=== PATIENT | female | born 1955 | race Caucasian/White ===

== ENCOUNTER 2023-08-18 14:48 | Outpatient (OUT) | payer BC, SELFPAY ==
[2023-08-18 15:50] LABS: Basophils Absolute Auto 0.1 10^3/uL (0.0-0.1); Basophils Percent Auto 0.9 % (0.2-2.0); Eosinophils Absolute Auto 0.2 10^3/uL (0.0-0.7); Hematocrit 43.2 % (36.0-48.0); Hemoglobin 14.3 g/dL (12.0-16.0); Immature Granulocytes Abs Auto 0.05 10^3/uL (0.00-0.03); Immature Granulocytes Pct Auto 0.7 % (0.0-0.5); Lymphocytes Absolute Auto 1.9 10^3/uL (1.2-3.8); Lymphocytes Percent Auto 28.7 % (20.5-60.0); Mean Corpuscular HGB Conc 33.1 g/dL (29.9-35.2); Mean Corpuscular Hemoglobin 31.2 pg (26.7-34.0); Mean Corpuscular Volume 94.1 fL (81.0-99.0); Monocytes Absolute Auto 0.4 10^3/uL (0.3-0.8); Monocytes Percent Auto 5.5 % (1.7-12.0); Neutrophils Absolute Auto 4.1 10^3/uL (1.4-6.5); Neutrophils Percent Auto 61.2 % (43.0-75.0); Platelet Count 256 10^3/uL (150-450); Red Blood Count 4.59 10^6/uL (4.20-5.40); Red Cell Distribution Width 12.6 % (11.0-15.0); White Blood Count 6.7 10^3/uL (4.0-11.0)
[2023-08-18 15:58] LABS: Estimated Average Glucose 97 mg/dL
[2023-08-18 16:06] LABS: Alanine Aminotransferase 25 U/L (14-59); Albumin Globulin Ratio 0.9; Albumin Level 3.6 g/dL (3.4-5.0); Alkaline Phosphatase 97 U/L (46-116); Anion Gap 11.9; Aspartate Amino Transferase 19 U/L (15-37); BUN Creatinine Ratio 13.3; Bilirubin Total 0.4 mg/dL (0.2-1.0); Carbon Dioxide 29.1 mmol/L (21.0-32.0); Chloride 104 mmol/L (98-107); Chol HDL Ratio 3.4; Cholesterol 222 mg/dL (<=200); Estimated GFR (African America >60 (>=60); Estimated GFR (Non-African Ame >60 (>=60); Free T3 2.56 pg/mL (2.18-3.98); Globulin 3.9 g/dL; Glucose 97 mg/dL (74-106); HDL Cholesterol 66 mg/dL (40-60); Sodium 141 mmol/L (136-145); Thyroid Stimulating Hormone 5.024 uIU/mL (0.358-3.740); Total Protein 7.5 g/dL (6.4-8.2); Triglycerides 121 mg/dL (<=150); VLDL CHOLESTEROL 24.2 mg/dL
== END 2023-08-18 14:49 | disposition home or self-care (01) ==
LOC: LAB 14:52
PROVIDERS: PCP Family Medicine; Visit Provider Family Medicine
DX: E03.9 Hypothyroidism, unspecified (principal); K44.9 Diaphragmatic hernia without obstruction or gangrene; K29.70 Gastritis, unspecified, without bleeding; E78.5 Hyperlipidemia, unspecified; R73.09 Other abnormal glucose; Z12.12 Encounter for screening for malignant neoplasm of rectum; D64.9 Anemia, unspecified; E55.9 Vitamin D deficiency, unspecified
CPT/HCPCS: 36415; 80053; 80061; 82306; 83036; 83525; 83540; 84436; 84443; 84481; 85025

== ENCOUNTER 2025-02-10 08:15 | Outpatient (OUT) | payer BC, SELFPAY ==
--- OUTSIDE RECORDS SUMMARY | 2025-02-10 08:41 | XMS_ITS | CCD ---
Author Organization [facility] Care Team Providers Care Medical Records Secretary Name Role Phone Ana Quezada MD Primary Care Provider [phone] DR ANA QUEZADA Admitting Unavailable BREANNE, DR PEREZ Attending Unavailable DR ANA QUEZADA Primary Care Unavailable DR ANA QUEZADA Consulting Unavailable Ana Quezada MD Primary Care Provider [phone] HOY, ANA M Primary Care Unavailable ALONA, IFEANYI Attending Unavailable ALONA, IFEANYI Referring Unavailable HOY, ANA M Primary Care Unavailable SELF, SELF Referring Unavailable MILADYS WRIGHT Attending Unavailable HOY, ANA M Primary Care Unavailable ALONA, IFEANYI Attending Unavailable ALONA, IFEANYI Referring Unavailable HOY, ANA M Referring Unavailable ALONA, IFEANYI Attending Unavailable HOY, ANA M Primary Care Unavailable HOY, ANA M Primary Care Unavailable HOY, ANA M Referring Unavailable ALONA, IFEANYI Attending Unavailable TEMO MARTINEZ Attending Unavailable HOY, ANA M Primary Care Unavailable HOY, ANA M Primary Care Unavailable JANESSA MARTINEZ Attending Unavailable Allergies Allergy Classification Reported Allergen(s) Allergy Type Date of Onset Reaction(s) Facility (5 sources) Latex Propensity to adverse reactions to drug 10-22-2022 [facility] Medications Current Medications Medication Drug Class(es) Dates Sig (Normalized) Sig (Original) [id number] 200 actuat albuterol 0.09 mg/actuat metered dose inhaler (5 sources) beta2-Adrenergic Agonist Start: 11-04-2024 take 2 puff(s) by inhalation every four hours as needed Albuterol 108 (90 Base) MCG/ACT Aero Soln inhaler Inhale 2 puffs every 4 hours as needed. 1 g 11/04/2024 Active Start: 10-15-2021 albuterol inha ler 4 puff Start: 10-15-2021 End: 07-15-2024 take 2 puff(s) by inhalation every four hours as needed for cough albuterol 108 (90 Base) MCG/ACT Aero Soln inhaler Inhale 2 puffs every 4 hours as needed for Shortness of Breath, Cough or Wheezing. 1 g 10/15/2021 07/15/2024 Discontinued (Therapy completed) azithromycin 500 mg oral tablet (1 source) Macrolide Antimicrobial Start: 11-08-2024 End: 11-13-2024 take 1 tablet by mouth once daily azithromycin 500 MG tablet Take 1 tablet by mouth daily for 5 days. 5 tablet 11/08/2024 11/13/2024 Active Cetirizine (5 sources) Histamine-1 Receptor Antagonist Cetirizine HCl (ZYRTEC ALLERGY PO) Take by mouth After meals as needed. Active dextromethorphan hydrobromide 2 mg/ml / guaiFENesin 20 mg/ml oral suspension (4 sources) Uncompetitive P-okanil-T-aspartat e Receptor Antagonist, Sigma-1 Agonist Start: 11-08-2024 take 10 mL by mouth every six hours as needed guaiFENesin-dextr omethorphan 100-10 MG/5ML Syrup Take 10 mL by mouth every 6 hours as needed for Cough or Congestion. 240 mL 11/08/2024 Active Start: 11-08-2024 End: 11-08-2024 take 1 dose by mouth once 10 mL, Oral, ONCE, 1 dose, O n 11/08/24 at 0045 Start: 11-04-2024 End: 11-08-2024 take 5-10 mL by mouth every four hours as needed guaiFENesin-dextromethorphan 100-10 MG/5ML Syrup Take 5-10 mL by mouth every 4 hours as needed for Cough. 120 mL 11/04/2024 11/08/2024 Discontinued (Therapy completed) fluticasone propionate 0.05 mg/actuat metered dose nasal spray (1 source) Corticosteroid Start: 11-08-2024 fluticasone 50 MCG/ACT Suspension nasal spray 2 sprays per nostril b.i.d. for 7 days. 16 g 11/08/2024 Active Start: 11-08-2024 fluticasone 50 MCG/ACT Suspension nasal spray 2 sprays per nostril b.i.d. for 7 days. 16 g 11/08/2024 Active levothyroxine sodium 0.05 mg oral tablet (5 sources) l-Thyroxine Start: 07-16-2024 End: 10-14-2024 take 1 tablet by mouth once daily before breakfast Levothyroxine 50 MCG tablet Indications: Hypothyroidism, unspecified type Take 1 tablet by mouth every morning before breakfast. 30 tablet 5 10/14/2024 Active pantoprazole 40 mg delayed release oral tablet (5 sources) Proton Pump Inhibitor Start: 10-16-2023 Pantop[address] tablet DR Take 1 tablet by mouth as needed for Other. 10/16/2023 Active Completed/Discontinued Medications Medication Drug Class(es) Dates Sig (Normalized) Sig (Original) albuterol 0.833 mg/ml / ipratropium bromide 0.167 mg/ml inhalation solution (1 source) Anticholinergic, beta2-Adrenergic Agonist Start: 11-04-2024 End: 11-04-2024 9 mL, Nebulization, ONCE, 1 dose, On 11/04/24 at 1400 benzonatate 100 mg oral capsule (1 source) Non-narcotic Antitussive Start: 11-04-2024 End: 11-04-2024 take 1 capsule by mouth three times daily as needed for cough benzonatate 100 MG capsule Take 1 capsule by mouth 3 times daily as needed for Cough. 21 capsule 11/04/2024 11/04/2024 Discontinued (Therapy completed) cefdinir 300 mg oral capsule (3 sources) Cephalosporin Antibacterial End: 10-14-2024 take 2 capsules by mouth once daily Cefdinir (OMNICEF) 300 MG capsule TAKE 2 CAPSULES BY MOUTH ONCE DAILY FOR 10 DAYS 10/14/2024 Discontinued (Therapy completed) doxycycline hyclate 100 mg oral capsule (5 sources) Tetracycline-class Drug Start: 10-15-2021 End: 10-15-2021 doxycycline hyclate (VIBRAMYCIN) capsule 100 mg Start: 10-15-2021 End: 10-25-2021 take 1 capsule by mouth every twelve hours doxycycline monohydrate 100 MG capsule Take 1 capsule by mouth every 12 hours for 10 days. 20 capsule 0 10/15/2021 10/25/2021 Active End: 02-03-2025 take 1 capsule by mouth twice daily Doxycycline monohydrate 100 MG capsule take 1 capsule by mouth twice daily for 10 days 10/14/2024 Discontinued (Therapy completed) hydroCHLOROthiazide 25 mg oral tablet (1 source) Thiazide Diuretic Start: 03-21-2024 End: 07-15-2024 take 1 tablet by mouth once daily in the morning hydroCHLOROthiazide 25 MG tablet Take 1 tablet by mouth daily every morning. 03/21/2024 07/15/2024 Discontinued (Other (suppress cancel msg)) methylPREDNISolone 125 mg injection (1 source) Corticosteroid Start: 10-15-2021 End: 10-15-2021 methylPREDNISolone sodium succinate (SOLU-MEDROL) injection 125 mg Start: 10-15-2021 End: 10-15-2021 methylPREDNISolone sodium fox ccinate (SOLU-MEDROL) injection 125 mg ondansetron 4 mg disintegrating oral tablet (3 sources) Serotonin-3 Receptor Antagonist Start: 10-22-2022 End: 07-15-2024 take 1 tablet by mouth every eight hours as needed Ondansetron 4 MG Tab Dispersible tablet Take 1 tablet by mouth every 8 hours as needed for Nausea. Place on tongue 10 tablet 10/22/2022 07/15/2024 Discontinued (Therapy completed) Start: 10-15-2021 End: 10-15-2021 ondansetron 4mg/2ml (ZOFRAN) injection 4 mg Start: 10-15-2021 take 1 tablet by melissa th every four hours as needed ondansetron 4 MG Tab Dispersible tablet Take 1 tablet by mouth every 4 hours as needed for Nausea. Place on tongue 30 tablet 0 10/15/2021 Active oxymetazoline hydrochloride 0.5 mg/ml nasal spray (1 source) Start: 11-08-2024 End: 11-08-2024 2 spray, Each Nostril, ONCE, 1 dose, On Mon11/08/24 at 0045, Do not use for more than 3 days. 1000 ml sodium chloride 9 mg /ml injection (3 sources) Start: 11-08-2024 End: 11-08-2024 500 mL, Intravenous, ONCE, 1 dose, On Mon11/08/24 at 0115 Start: 10-15-2021 End: 10-15-2021 sodium chloride 0.9% IV solu tion 1,000 mL Problems Problem Classification Problem Date Documented Da te Episodic/Chronic Chronic obstructive pulmonary disease and bronchiectasis (3 sources) Bronchitis; Translations: [Bronchitis, not specified as acute or chronic] Onset: 11-08-2024 11-08-2024 Episodic Deficiency and other anemia (1 source) Anemia, unspecified; Translations: [ANEMIA UNSPECIFIED] Onset: 09-07-2022 Episodic Diabetes mellitus without complication (1 source) Other abnormal glucose; Translations: [OTHER ABNORMAL GLUCOSE] Onset: 09-07-2022 Episodic Disorders of lipid metabolism (1 source) Hyperlipidemia, unspecified; Translations: [HYPERLIPIDEMIA UNSPECIFIED] Onset: 09-07-2022 Chronic Influenza (4 sources) Influenza due to Influenza A virus; Translations: [Influenza due to other identified influenza virus with other respiratory manifestations] Onset: 11-08-2024 11-04-2024 Episodic Other nutritional; endocrine; and metabolic disorders (1 source) Obesity, unspecified; Translations: [OBESITY UNSPECIFIED] Onset: 09-07-2022 Chronic Other nutritional; endocrine; and metabolic disorders (7 sources) Severe obesity; Translations: [Class 3 severe obesity due to excess calories with body mass index (BMI) of 40.0 to 44.9 in adult, unspecified whether serious comorbidity present] Onset: 07-15-2024 07-15-2024 Chronic Other nutritional; endocrine; and metabolic disorders (5 sources) Body mass index 40+ - severely obese; Translations: [Morbid (severe) obesity due to excess calories] Onset: 07-15-2024 07-15-2024 Chronic Other screening for suspected conditions (not mental disorders or infectious disease) (1 source) Encounter for screening for malignant neoplasm of rectum; Translations: [ENC SCREEN MALIG NEOPLASM RECTUM] Onset: 09-07-2022 Episodic Other skin disorders (1 source) Sebaceous cyst; Translations: [SEBACEOUS CYST] Onset: 09-07-2022 Episodic Other skin disorders (1 source) Epidermoid cyst; Translations: [Epidermal cyst] 08-01-2024 Episodic Other upper respiratory infections (3 sources) Upper respiratory infection; Translations: [Acute upper respiratory infection, unspecified] Onset: 11-08-2024 11-08-2024 Episodic Thyroid disorders (11 sources) Hypothyroidism, unspecified; Translations: [Hypothyroidism] Onset: 08-31-2022 Chronic Viral infection (1 source) Disease caused by 2019-nCoV; Translations: [COVID-19] Episodic Results Test Name Value Interpretation Reference Range Facility CBCon 11-08-2024 ABSOLUTE BAS 0.0 10*3/uL Normal 0.0-0.2 [facility] ([facility]3] Comment on above: Performed By: #### C MPF, LIPA2, ACBC, ITROT #### Testing performed at [address] [address] ABSOLUTE EOS 0.0 10*3/uL Normal 0.0-0.7 [facility] ([facility]3] Comment on above: Performed By: #### C MPF, LIPA2, ACBC, ITROT #### Testing performed at [address] [address] ABSOLUTE NEUTROPHIL COUNT 2.3 10*3/uL Normal 1.4-6.5 [facility] Comment on above: Performed By: #### C MPF, LIPA2, ACBC, ITROT #### Testing performed at [address] [address] Basophils/100 WBC (Bld) 0.4 % Normal 0.0-2.0 [facility] Comment on above: Performed By: #### C MPF, LIPA2, ACBC, ITROT #### Testing performed at [address] [address] DTYPE AUTO DIFF Normal [facility] Comment on above: Performed By: #### C MPF, LIPA2, ACBC, ITROT #### Testing performed at [address] [address] Eosinophils/100 WBC (Bld) 0.0 % Normal 0.0-11.0 [facility] Comment on above: Performed By: #### C MPF, LIPA2, ACBC, ITROT #### Testing performed at [address] [address] Lymphocytes (Bld) [#/Vol] 0.8 10*3/uL Low 1.2-3.4 [facility] Comment on above: Performed By: #### C MPF, LIPA2, ACBC, ITROT #### Testing performed at [address] [address] Lymphocytes/100 WBC (Bld) 22.5 % Normal 20.0-55.0 [facility] Comment on above: Performed By: #### C MPF, LIPA2, ACBC, ITROT #### Testing performed at [address] [address] Monocytes (Bld) [#/Vol] 0.4 10*3/uL Normal 0.0-0.7 [facility] Comment on above: Performed By: #### C MPF, LIPA2, ACBC, ITROT #### Testing performed at [address] [address] Monocytes/100 WBC (Bld) 11.9 % High 0.0-10.0 [facility] Comment on above: Performed By: #### C MPF, LIPA2, ACBC, ITROT #### Testing performed at [address] [address] Neutrophils/100 WBC (Bld) 65.2 % Normal 37.0-75.0 [facility] Comment on above: Performed By: #### C MPF, LIPA2, ACBC, ITROT #### Testing performed at [address] [address] Erythrocyte distribution width (RBC) [Ratio] 12.9 % Normal 11.5-14.5 [facility] Comment on above: Performed By: #### C MPF, LIPA2, ACBC, ITROT #### Testing performed at [address] [address] Hematocrit (Bld) [Volume fraction] 42.9 % Normal 36.0-48.0 [facility] Comment on above: Performed By: #### C MPF, LIPA2, ACBC, ITROT #### Testing performed at [address] [address] Hemoglobin (Bld) [Mass/Vol] 14.7 g/dL Normal 12.0-16.0 [facility] Comment on above: Performed By: #### C MPF, LIPA2, ACBC, ITROT #### Testing performed at [address] [address] MCH (RBC) [Entitic mass] 31.0 pg Normal 26.0-35.0 [facility] Comment on above: Performed By: #### C MPF, LIPA2, ACBC, ITROT #### Testing performed at [address] [address] MCHC (RBC) [Mass/Vol] 34.3 g/dL Normal 27.0-37.0 [facility] Comment on above: Performed By: #### C MPF, LIPA2, ACBC, ITROT #### Testing performed at [address] [address] MCV (RBC) [Entitic vol] 90.3 fL Normal 80.0-100.0 [facility] Comment on above: Performed By: #### C MPF, LIPA2, ACBC, ITROT #### Testing performed at [address] [address] Platelet mean volume (Bld) [Entitic vol] 8.0 fL Normal 7.4-11.0 [facility] Comment on above: Performed By: #### C MPF, LIPA2, ACBC, ITROT #### Testing performed at [address] [address] Platelets (Bld) [#/Vol] 165 10*3/uL Normal 130-400 [facility] Comment on above: Performed By: #### C MPF, LIPA2, ACBC, ITROT #### Testing performed at [address] [address] RBC (Bld) [#/Vol] 4.75 10*6/uL Normal 4.0-5.4 [facility] Comment on above: Performed By: #### C MPF, LIPA2, ACBC, ITROT #### Testing performed at [address] [address] WBC (Bld) [#/Vol] 3.5 10*3/uL Low 3.6-11.0 [facility] Comment on above: Performed By: #### C MPF, LIPA2, ACBC, ITROT #### Testing performed at [address] [address] CBC, EDIF, PLATELETon 2024 ABSOLUTE BASOPHIL COUNT 0 10*3/uL 0.0 - 0.2 10*3/uL [facility] Basophils/100 WBC (Bld) 0.4 % 0.0 - 2.0 % [facility] Differential cell count method Nom (Bld) AUTO DIFF % [facility] Eosinophils (Bld) [#/Vol] 0 10*3/uL 0.0 - 0.7 10*3/uL [facility] Eosinophils/100 WBC (Bld) 0 % 0.0 - 11.0 % [facility] Erythrocyte distribution width (RBC) [Ratio] 12.9 % 11.5 - 14.5 % [facility] Hematocrit (Bld) [Volume fraction] 42.9 % 36.0 - 48.0 % [facility] Hemoglobin (Bld) [Mass/Vol] 14.7 g/dL [facility] Interpretation and review of laboratory results Abnormal [facility] Lymphocytes (Bld) [#/Vol] 0.8 10*3/uL Low 1.2 - 3.4 10*3/uL [facility] Lymphocytes/100 WBC (Bld) 22.5 % 20.0 - 55.0 % [facility] MCH (RBC) [Entitic mass] 31 pg 26.0 - 35.0 PG [facility] MCHC (RBC) [Mass/Vol] 34.3 g/dL [facility] MCV (RBC) [Entitic vol] 90.3 fL [facility] Monocytes (Bld) [#/Vol] 0.4 10*3/uL 0.0 - 0.7 10*3/uL [facility] Monocytes/100 WBC (Bld) 11.9 % High 0.0 - 10.0 % [facility] Neutrophils (Bld) [#/Vol] 2.3 10*3/uL 1.4 - 6.5 10*3/uL [facility] Neutrophils/100 WBC (Bld) 65.2 % 37.0 - 75.0 % [facility] Platelet mean volume (Bld) [Entitic vol] 8 fL [facility] Platelets (Bld) [#/Vol] 165 10*3/uL 130 - 400 10*3/uL [facility] RBC (Bld) [#/Vol] 4.75 10*6/uL 4.0 - 5.4 10*6/uL [facility] WBC (Bld) [#/Vol] 3.5 10*3/uL Low 3.6 - 11.0 10*3/uL [facility] CMP FASTINGon 11-08-2024 A:G RATIO 1.1 RATIO Normal [facility] Comment on above: Performed By: #### R FLUAB #### Testing performed at [address] [address] ALBUMIN 3.4 G/dl Low 3.5-5.0 [facility] Comment on above: Performed By: #### R FLUAB #### Testing performed at [address] [address] ALP [Catalytic activity/Vol] 60 U/L Normal 38-126 [facility] Comment on above: Performed By: #### R FLUAB #### Testing performed at [address] [address] ALT [Catalytic activity/Vol] 58 U/L High <35 [facility] Comment on above: Performed By: #### R FLUAB #### Testing performed at [address] [address] AST [Catalytic activity/Vol] 117 U/L High 14-36 [facility] Comment on above: Performed By: #### R FLUAB #### Testing performed at [address] [address] Bilirubin [Mass/Vol] 0.6 mg/dL Normal 0.2-1.3 [facility] Comment on above: Performed By: #### R FLUAB #### Testing performed at [address] [address] Calcium [Mass/Vol] 8.3 mg/dL Low 8.4-10.2 [facility] Comment on above: Performed By: #### R FLUAB #### Testing performed at [address] [address] Chloride [Moles/Vol] 91 mmol/L Low 98-107 [facility] Comment on above: Result Comment: Adolfo pan note: Triglyceride levels of 600mg/dL or higher may positively bias chloride results by approximately 2.1 mmol Performed By: #### R FLUAB #### Testing performed at [address] [address] CO2 [Moles/Vol] 32 mmol/L High 22-30 [facility] Comment on above: Performed By: #### R FLUAB #### Testing performed at [address] [address] Creatinine [Mass/Vol] 0.84 mg/dL Normal 0.70-1.20 [facility] Comment on above: Performed By: #### R FLUAB #### Testing performed at [address] [address] EST. GFR, 87 ml/min/1.73sq.m [facility] Comment on above: Performed By: #### R FLUAB #### Testing performed at [address] [address] EST. GFR,Non 72 ml/min/1.73sq.m [facility] Comment on above: Performed By: #### R FLUAB #### Testing performed at [address] [address] GFR Information Average GFR for 60-69 years old = 85. Normal [facility] Comment on above: Result Comment: [facility] Kidney disease, GFR = <60. Kidney failure, GFR = <15. The GFR estimate is not adjusted for extreme body surface area or acute process, nor has it been validated for women or ethnic groups other than and . Performed By: #### R FLUAB #### Testing performed at [address] [address] Glucose [Mass/Vol] 105 mg/dL High 70-100 [facility] Comment on above: Result Comment: NORMAL <100 mg/dL PREDIABETES 101-126 mg/dL DIABETES 126 mg/dL or higher Performed By: #### R FLUAB #### Testing performed at [address] [address] Potassium [Moles/Vol] 3.6 mmol/L Normal 3.5-5.1 [facility] Comment on above: Performed By: #### R FLUAB #### Testing performed at [address] [address] Protein [Mass/Vol] 6.5 g/dL Normal 6.3-8.2 [facility] Comment on above: Performed By: #### R FLUAB #### Testing performed at [address] [address] Sodium [Moles/Vol] 132 mmol/L Low 137-145 [facility] Comment on above: Performed By: #### R FLUAB #### Testing performed at [address] [address] Urea nitrogen [Mass/Vol] 16 mg/dL Normal 7-20 [facility] Comment on above: Performed By: #### R FLUAB #### Testing performed at [address] [address] COMPREHENSIVE METABOLIC PANE Kashif 11-08-2024 Albumin [Mass/Vol] 3.4 G/dl Low 3.5 - 5.0 G/dl [facility] Albumin/Globulin [Mass ratio] 1.1 {ratio} RATIO [facility] ALP [Catalytic activity/Vol] 60 U/L [facility] ALT [Catalytic activity/Vol] 58 U/L High [facility] AST [Catalytic activity/Vol] 117 U/L [facility] Bilirubin [Mass/Vol] 0.6 mg/dL [facility] Calcium [Mass/Vol] 8.3 mg/dL Low [facility] Chloride [Moles/Vol] 91 mmol/L Low [facility] Comment on above: Please note: Triglyc eride levels of 600mg/dL or higher may positively bias chloride results by approximately 2.1 mmol CO2 [Moles/Vol] 32 mmol/L High [facility] Creatinine [Mass/Vol] 0.84 mg/dL [facility] GFR COMMENT Average GFR for 60-69 years old = 85. [facility] Comment on above: Chronic Kidney disea se, GFR = <60. Kidney failure, GFR = <15. The GFR estimate is not adjusted for extreme body surface area or acute process, nor has it been validated for women or ethnic groups other than and . GFR/1.73 sq M.predicted among blacks MDRD (S/P/Bld) [Vol rate/Area] 87 mL/min/{1.73_m2} ml/min/1.73sq. m [facility] GFR/1.73 sq M.predicted among non-blacks MDRD (S/P/Bld) [Vol rate/Area] 72 mL/min/{1.73_m2} ml/min/1.73sq. m [facility] Glucose post fast [Mass/Vol] 105 mg/dL High [facility] Comment on above: NORMAL <100 mg/dL PREDIABETES 101-126 mg/dL DIABETES 126 mg/dL or higher Interpretation and review of laboratory results Abnormal [facility] Potassium [Moles/Vol] 3.6 mmol/L [facility] Protein [Mass/Vol] 6.5 g/dL [facility] Sodium [Moles/Vol] 132 mmol/L Low [facility] Urea nitrogen [Mass/Vol] 16 mg/dL [facility] IST TROPONIN Ion Troponin I.cardiac [Mass/Vol] 0.04 ng/mL Normal 0-0.08 [facility] Comment on above: Performed By: #### R FLUAB #### Testing performed at [place] [id number] LIPASEon 11-08-2024 Lipase [Catalytic activity/Vol] 93 U/L 23 - 300 U/L [facility] LIPASE,SERUMon 11-08-2024 LIPASE,SERUM 93 U/L Normal 23-300 [facility] Comment on above: Performed By: #### R FLUAB #### Testing performed at [place] [id number] No Panel Informationon 11-08 [facility] Portable XR Chest Viewson IMPRESSION: Hazy airspace opacities are seen in the left lower lung, which may represent hazy infiltrates. Please correlate clinically. RADIOLOGY EXAMINATION: XR CHEST 1 VIEW PORTABLE, , 11/07/2024 9:45 PM PST INDICATION: Shortness of breath HISTORY: Ordering Provider Reason for Exam: Technologist Note: Additional: COMPARISON: None. TECHNIQUE: Chest x-ray: One view. FINDINGS: Hazy airspace opacities are seen in the left lower lung, which may represent hazy infiltrates. Please correlate clinically. No significant pleural effusion or obvious pneumothorax is seen. Heart is normal in size. Bony thorax is unremarkable. RADIOLOGY Mariluz Barrios MD - 11/08/2024 EXAMINATION: XR CHEST 1 VIEW PORTABLE, , 11/07/2024 9:45 PM PST INDICATION: Shortness of breath HISTORY: Ordering Provider Reason for Exam: Technologist Note: Additional: COMPARISON: None. TECHNIQUE: Chest x-ray: One view. FINDINGS: Hazy airspace opacities are seen in the left lower lung, which may represent hazy infiltrates. Please correlate clinically. No significant pleural effusion or obvious pneumothorax is seen. Heart is normal in size. Bony thorax is unremarkable. IMPRESSION IMPRESSION: Hazy airspace opacities are seen in the left lower lung, which may represent hazy infiltrates. Please correlate clinically. [facility] Radiology Study observation (narrative) [facility] Portable XR Chest ViewsOrder ed By: Mariluz Barrios on 11-08-2024 [facility] Work Phone: TROPONINon 11-08-2024 Troponin I.cardiac [Mass/Vol] 0.04 ng/mL 0 - 0.08 ng/mL [facility] TSHon 11-08-2024 TSH Qn 1.14 m[IU]/L [facility] TSH 1.140 uIU/ML Normal 0.465-4.680 [facility]3] Comment on above: Performed By: #### R FLUAB #### Testing performed at [place] [id number] XR CHEST 1 VIEW PORTABLEon 0 11-08-2024 XR CHEST 1 VIEW PORTABLE EXAMINATION: XR CHEST 1 VIEW PORTABLE, , 11/07/2024 9:45 PM PST INDICATION: Shortness of breath HISTORY: Ordering Provider Reason for Exam: Technologist Note: Additional: COMPARISON: None. TECHNIQUE: Chest x-ray: One view. FINDINGS: Hazy airspace opacities are seen in the left lower lung, which may represent hazy infiltrates. Please correlate clinically. No significant pleural effusion or obvious pneumothorax is seen. Heart is normal in size. Bony thorax is unremarkable. IMPRESSION: Hazy airspace opacities are seen in the left lower lung, which may represent hazy infiltrates. Please correlate clinically. Normal [facility] INFLUENZA A AND B, PCRon FLUAV and FLUBV Ag IF Nom (Unsp spec) Positive Abnormal NEGATIVE [facility] FLUBV Ag IA Ql (Unsp spec) Negative NEGATIVE [facility] Comment on above: TESTING PERFORMED BY MARTA Interpretation and review of laboratory results Abnormal [facility] NOVEL CORONAVIRUSon 11-04-19 25 NARRATIVE This test was performed using isothermal [employer] for the qualitative detection of SARS-CoV-2 nucleic acid. Normal [facility] Comment on above: Performed By: #### C OVID #### Testing performed at [place] [id number] SARS-CoV-2 (COVID-19) RNA MARTA+probe Ql (Unsp spec) Not detected Normal NOT DETECTED [facility] Comment on above: Result Comment: Nega tive results do not preclude SARS-CoV-2 infection and should not be used as the sole basis for treatment or other patient management decisions. Optimum specimen types and timing for peak viral levels during infections caused by SARS-CoV-2 has not been determined. The possibility of a false negative result should especially be considered if the patient's recent exposures or clinical presentation suggest that SARS-CoV-2 infection is probable, and diagnostic tests for other causes of illness (e.g., other respiratory illness) are negative. Collection of a new specimen and re-testing may be necessary if the patient is critically ill or clinically deteriorating. Performed By: #### C OVID #### Testing performed at [address] [address] NOVEL CORONAVIRUS LAB 1 - NA SOPHARYNGEALon 11-04-2024 SARS-CoV-2 (COVID-19) RNA MARTA+probe Ql (Unsp spec) Not detected NOT DETECTED [facility] Comment on above: Negative results do not preclude SARS-CoV-2 infection and should not be used as the sole basis for treatment or other patient management decisions. Optimum specimen types and timing for peak viral levels during infections caused by SARS-CoV-2 has not been determined. The possibility of a false negative result should especially be considered if the patient's recent exposures or clinical presentation suggest that SARS-CoV-2 infection is probable, and diagnostic tests for other causes of illness (e.g., other respiratory illness) are negative. Collection of a new specimen and re-testing may be necessary if the patient is critically ill or clinically deteriorating. SARS-CoV-2 (COVID-19) RNA MARTA+probe Ql (Unsp spec) This test was performed using isothermal MARTA for the qualitative detection of SARS-CoV-2 nucleic acid. [facility] RAPID FLU Aon 11-04-2024 INFLUENZA A Positive Abnormal NEGATIVE [facility] Comment on above: Performed By: #### R FLUAB #### Testing performed at [address] [address] INFLUENZA B Negative Normal NEGATIVE [facility] Comment on above: Result Comment: TEST ING PERFORMED BY [employer] Performed By: #### R FLUAB #### Testing performed at [address] [address] XR CHEST PA 1 VIEWon 025 XR CHEST PA 1 VIEW EXAMINATION: XR CHEST PA 1 VIEW HISTORY: cough COMPARISON: 10/15/2021 TECHNIQUE: Portable FINDINGS: LUNGS: No significant pulmonary parenchymal abnormalities. Low lung volumes VASCULATURE: No increased pulmonary vasculature. PLEURA: No pneumothorax, effusion, or pleural thickening. CARDIAC: No cardiomegaly or cardiac silhouette abnormality. MEDIASTINUM: No visible mass or adenopathy. BONES: No fracture or visible bone lesion. OTHER: Negative. IMPRESSION: Low lung volumes, no acute disease. Normal [facility] XR Chest PA uprighton 2024 IMPRESSION: Low lung volumes, no acute disease. RADIOLOGY EXAMINATION: XR CHEST PA 1 VIEW HISTORY: cough COMPARISON: 10/15/2021 TECHNIQUE: Portable FINDINGS: LUNGS: No significant pulmonary parenchymal abnormalities. Low lung volumes VASCULATURE: No increased pulmonary vasculature. PLEURA: No pneumothorax, effusion, or pleural thickening. CARDIAC: No cardiomegaly or cardiac silhouette abnormality. MEDIASTINUM: No visible mass or adenopathy. BONES: No fracture or visible bone lesion. OTHER: Negative. RADIOLOGY Janessa Christianson MD - 11/04/2024 EXAMINATION: XR CHEST PA 1 VIEW HISTORY: cough COMPARISON: 10/15/2021 TECHNIQUE: Portable FINDINGS: LUNGS: No significant pulmonary parenchymal abnormalities. Low lung volumes VASCULATURE: No increased pulmonary vasculature. PLEURA: No pneumothorax, effusion, or pleural thickening. CARDIAC: No cardiomegaly or cardiac silhouette abnormality. MEDIASTINUM: No visible mass or adenopathy. BONES: No fracture or visible bone lesion. OTHER: Negative. IMPRESSION IMPRESSION: Low lung volumes, no acute disease. [facility] Radiology Study observation (narrative) [facility] XR Chest PA uprightOrdered B y: Janessa Thomas on 11-04-2024 [facility] Work Phone: ANTI THYROGLOBULIN ABon 09-13 Thyroglobulin Ab Qn [IU]/mL Normal [facility] Comment on above: Result Comment: Refe rence range: 0.0 to 0.9 Unit: IU/mL (NOTE) Thyroglobulin Antibody measured by [employer] It should be noted that the presence of thyroglobulin antibodies may not be pathogenic nor diagnostic, especially at very low levels. The assay record clerk salesperson has found that four percent of individuals without evidence of thyroid disease or autoimmunity will have positive TgAb levels up to 4 IU/mL. PERFORMED AT [facility] Performed By: #### L TUAN CONSTANTINO #### Testing performed at [facility] [address] [place] [address] [place] [address] THYROID PEROXIDASEon 025 TPO AB 22 Normal [facility] Comment on above: Result Comment: Refe rence range: 0 to 34 Unit: IU/mL PERFORMED AT [facility] Performed By: #### L TUAN CONSTANTINO #### Testing performed at [facility] [address] [place], [place] [address]ox [facility] [place] [address] [place] [address] TSH,REFLEX FREE T4on 025 TSH,REFLEX FREE T4 3.330 uIU/ML Normal 0.465-4.680 [facility] Comment on above: Performed By: #### R TSH #### Testing performed at [address] [address] FREE T4on 07-15-2024 Free T4 [Mass/Vol] 0.78 ng/dL Normal 0.78-2.19 [facility] Comment on above: Performed By: #### T 42, RTSH #### Testing performed at [address] [address] TSH W/FT4 REFLEXon 11-04-202 4 Interpretation and review of laboratory results Abnormal [facility] TSH Qn 8.790 m[IU]/L High [facility] TSH,REFLEX FREE T4on 024 TSH,REFLEX FREE T4 8.790 uIU/ML High 0.465-4.680 [facility] Comment on above: Performed By: #### T 42, RTSH #### Testing performed at [place] [id number] [place] [address] INSULINon 09-01-2022 Insulin 14.7 uIU/mL Normal 2.6-24.9 [facility] Comment on above: Performed By: #### I NSULIN #### [facility] [address] [place] [address] Dr. Earlene Lala CBC AUTO DIFFon 08-31-2022 BASO # 0.0 103/ul Normal 0.0-0.1 [facility] Comment on above: Performed By: #### C BC #### [facility] [address] [place] [address] Dr. Earlene Lala Basophils/100 WBC (Bld) 0.6 % Normal 0.2-2.0 [facility] Comment on above: Performed By: #### C BC #### [facility] [address] [place] [address] Dr. Earlene Lala EO # 0.3 103/ul Normal 0.0-0.7 [facility] Comment on above: Performed By: #### C BC #### [facility] [address] [place] [address] Dr. Earlene Lala Eosinophils/100 WBC (Bld) 4.1 % Normal 0.9-7.0 [facility] Comment on above: Performed By: #### C BC #### [facility] [address] [place] [address] Dr. Earlene Lala Erythrocyte distribution width (RBC) [Ratio] 12.8 % Normal 11.0-15.0 [facility] Comment on above: Performed By: #### C BC #### [facility] [address] [place] [address] Dr. Earlene Lala Hematocrit (Bld) [Volume fraction] 44.3 % Normal 36.0-48.0 [facility] Comment on above: Performed By: #### C BC #### [facility] [address] [place] [address] Dr. Earlene Lala Hemoglobin (Bld) [Mass/Vol] 14.8 g/dL Normal 12.0-16.0 [facility] Comment on above: Performed By: #### C BC #### [facility] [address] [place] [address] Dr. Earlene Lala IG # 0.06 10e3/ul Critically high 0.00-0.03 [facility] Comment on above: Performed By: #### C BC #### [facility] [address] [place] [address] Dr. Earlene Lala IG % 1.0 % Critically high 0.0-0.5 [facility] Comment on above: Performed By: #### C BC #### [facility] [address] [place] [address] Dr. Earlene Lala LYMPH # 1.6 103/ul Normal 1.2-3.8 [facility] Comment on above: Performed By: #### C BC #### [facility] [address] [place] [address] Dr. Earlene Lala Lymphocytes/100 WBC (Bld) 25.3 % Normal 20.5-60.0 [facility] Comment on above: Performed By: #### C BC #### [facility] [address] [place] [address] Dr. Earlene Lala MANUAL DIFF REQ NO Normal [facility] Comment on above: Performed By: #### C BC #### [facility] [address] [place] [address] Dr. Earlene Lala MCH (RBC) [Entitic mass] 30.6 pg Normal 26.7-34.0 [facility] Comment on above: Performed By: #### C BC #### [facility] [address] [place] [address] Dr. Earlene Lala MCHC (RBC) [Mass/Vol] 33.4 g/dL Normal 29.9-35.2 [facility] Comment on above: Performed By: #### C BC #### [facility] [address] [place] [address] [address] Earlene Lala MCV (RBC) [Entitic vol] 91.7 fL Normal 81.0-99.0 [facility] Comment on above: Performed By: #### C BC #### [facility] [address] [place] [address] [address] Earlene Lala MONO # 0.4 103/ul Normal 0.3-0.8 [facility] Comment on above: Performed By: #### C BC #### [facility] [address] [place] [address] Dr. Earlene Lala Monocytes/100 WBC (Bld) 5.7 % Normal 1.7-12.0 [facility] Comment on above: Performed By: #### C BC #### [facility] [address] [place] [address] Dr. Earlene Lala NEUT # 3.9 103/ul Normal 1.4-6.5 [facility] Comment on above: Performed By: #### C BC #### [facility] [address] [place] [address] Dr. Earlene Lala Neutrophils/100 WBC (Bld) 63.3 % Normal 43.0-75.0 [facility] Comment on above: Performed By: #### C BC #### [facility] [address] [place] [address] Dr. Earlene Lala Platelet mean volume (Bld) [Entitic vol] 9.6 fL Normal 9.5-13.5 [facility] Comment on above: Performed By: #### C BC #### [facility] [address] [place] [address] Dr. Earlene Lala PLT 271 103/ul Normal 150-450 [facility] Comment on above: Performed By: #### C BC #### [facility] [address] [place] [address] Dr. Earlene Lala RBC 4.83 106/ul Normal 4.20-5.40 [facility] Comment on above: Performed By: #### C BC #### [facility] [address] [place] [address] Dr. Earlene Lala WBC 6.2 103/ul Normal 4.0-11.0 [facility] Comment on above: Performed By: #### C BC #### [facility] [address] [place] [address] Dr. Earlene Lala FREE THYROXINE INDEX T7on FTI 2.11 Normal 1.30-4.50 [facility] Comment on above: Performed By: #### L IPID, TSH, CMP, T7 #### [facility] [address] [place] [address] Dr. Earlene Lala T3U 33.0 % Normal 30.0-39.0 [facility] Comment on above: Performed By: #### L IPID, TSH, CMP, T7 #### [facility] [address] [place] [address] Dr. Earlene Lala T4 [Mass/Vol] 6.40 ug/dL Normal 4.80-13.90 [facility] Comment on above: Performed By: #### L IPID, TSH, CMP, T7 #### [facility] [address] [place] [address] Dr. Earlene Lala GLYCOHEMOGLOBIN A1Con 2021 ADA RECOMMENDATION SEE BELOW Normal [facility] Comment on above: Result Comment: ADA RECOMMENDED LIMIT 4.0 - 6.0 ADA THERAPEUTIC TARGET < 7.0 ACTION SUGGESTED > 7.0 Performed By: #### A 1C #### [facility] [address] [place] [address] Dr. Earlene Lala Glucose [Mass/Vol] 103 mg/dL Normal [facility] Comment on above: Performed By: #### A 1C #### [facility] [address] [place] [address] Dr. Earlene Lala HbA1c (Bld) [Mass fraction] 5.2 % Normal 4.5-6.2 [facility] Comment on above: Performed By: #### A 1C #### [facility] [address] [place] [address] Dr. Earlene Lala IRONon 08-31-2022 Iron [Mass/Vol] 98.0 ug/dL Normal 50.0-170.0 [facility] Comment on above: Performed By: #### I JON #### [facility] [address] [place] [address] Dr. Earlene Lala LIPID PROFILEon 08-31-2022 CHOL-HDL RATIO NORM SEE BELOW Normal [facility] Comment on above: Result Comment: 3.3 - 4.4 LOW RISK 4.4 - 7.1 AVERAGE RISK 7.1 - 11.0 MODERATE RISK >11.0 HIGH RISK Performed By: #### L IPID, TSH, CMP, T7 #### [facility] [address] [place] [address] Dr. aErlene Lala Cholesterol [Mass/Vol] 192 mg/dL Normal <=200 [facility] Comment on above: Performed By: #### L IPID, TSH, CMP, T7 #### [facility] [address] [place] [address] Dr. Earlene Lala Cholesterol in HDL [Mass/Vol] 58 mg/dL Normal 40-60 [facility] Comment on above: Performed By: #### L IPID, TSH, CMP, T7 #### [facility] [address] [place] [address] [address] Earlene Lala Cholesterol in LDL [Mass/Vol] 110.0 mg/dL Normal [facility] Comment on above: Performed By: #### L IPID, TSH, CMP, T7 #### [facility] [address] [place] [address] [address] Earlene Lala Cholesterol.total/Chol esterol in HDL [Mass ratio] 3.3 {ratio} Normal [facility] Comment on above: Performed By: #### L IPID, TSH, CMP, T7 #### [facility] [address] [place] [address] Dr. Earlene Lala HDL NORMAL > or = 60 mg/dl - LOW CARDIOVASCULAR RISK <40 mg/dl - HIGH CARDIOVASCULAR RISK Normal [facility] Comment on above: Performed By: #### L IPID, TSH, CMP, T7 #### [facility] [address] [place] [address] [address] Earlene Lala LDL CALC NORMAL SEE BELOW Normal [facility] Comment on above: Result Comment: <100 mg/dl OPTIMAL 100 - 129 mg/dl NEAR OR ABOVE OPTIMAL 130 - 159 mg/dl BORDERLINE HIGH 160 - 189 mg/dl HIGH >190 mg/dl VERY HIGH Performed By: #### L IPID, TSH, CMP, T7 #### [facility] [address] [address] [address] Earlene Lala Triglyceride [Mass/Vol] 120 mg/dL Normal <=150 [facility] Comment on above: Performed By: #### L IPID, TSH, CMP, T7 #### [facility] [address] [address] [address] Earlene Lala VLDL CALC 24.0 mg/dL Normal [facility] Comment on above: Performed By: #### L IPID, TSH, CMP, T7 #### [facility] [address] [place] [address] Dr. Earlene Lala PROF 14(COMP METB)on 022 Albumin [Mass/Vol] 3.5 g/dL Normal 3.4-5.0 [facility] Comment on above: Performed By: #### L IPID, TSH, CMP, T7 #### [facility] [address] [place] [address] Dr. Earlene Lala Albumin/Globulin [Mass ratio] 0.9 {ratio} Normal [facility] Comment on above: Performed By: #### L IPID, TSH, CMP, T7 #### [facility] [address] [place] [address] Dr. Earlene Lala ALP [Catalytic activity/Vol] 90 U/L Normal 46-116 [facility] Comment on above: Performed By: #### L IPID, TSH, CMP, T7 #### [facility] [address] [place] [address] Dr. Earlene Lala ALT [Catalytic activity/Vol] 24 U/L Normal 14-59 [facility] Comment on above: Performed By: #### L IPID, TSH, CMP, T7 #### [facility] [address] [address] [address] Earlene Lala Anion gap [Moles/Vol] 11.5 mmol/L Normal [facility] Comment on above: Performed By: #### L IPID, TSH, CMP, T7 #### [facility] [address] [address] [address] Earlene Lala AST [Catalytic activity/Vol] 22 U/L Normal 15-37 [facility] Comment on above: Performed By: #### L IPID, TSH, CMP, T7 #### [facility] [address] [address] [address] Earlene Lala Bilirubin [Mass/Vol] 0.4 mg/dL Normal 0.2-1.0 [facility] Comment on above: Performed By: #### L IPID, TSH, CMP, T7 #### [facility] [address] [place] [address] Dr. Earlene Lala Calcium [Mass/Vol] 9.1 mg/dL Normal 8.5-10.1 [facility] Comment on above: Performed By: #### L IPID, TSH, CMP, T7 #### [facility] [address] [address] [address] Earlene Lala Chloride [Moles/Vol] 102 mmol/L Normal 98-107 [facility] Comment on above: Performed By: #### L IPID, TSH, CMP, T7 #### [facility] [address] [address] [address] Earlene Lala CO2 [Moles/Vol] 30.5 mmol/L Normal 21.0-32.0 [facility] Comment on above: Performed By: #### L IPID, TSH, CMP, T7 #### [facility] [address] [address] [address] Earlene Lala Creatinine [Mass/Vol] 0.81 mg/dL Normal 0.55-1.02 [facility] Comment on above: Performed By: #### L IPID, TSH, CMP, T7 #### [facility] [address] [address] [address] Earlene Lala EGFR-AF BENINESE >60 Normal >=60 [facility] Comment on above: Performed By: #### L IPID, TSH, CMP, T7 #### [facility] [address] [place] [address] Dr. Earlene Lala EGFR-NON AF BENINESE >60 Normal >=60 [facility] Comment on above: Performed By: #### L IPID, TSH, CMP, T7 #### [facility] [address] [address] [address] Earlene Lala Globulin (S) [Mass/Vol] 3.8 g/dL Normal [facility] Comment on above: Performed By: #### L IPID, TSH, CMP, T7 #### [facility] [address] [place] [address] Dr. Earlene Lala Glucose [Mass/Vol] 90 mg/dL Normal 74-106 [facility] Comment on above: Performed By: #### L IPID, TSH, CMP, T7 #### [facility] [address] [address] [address] Earlene Lala Potassium [Moles/Vol] 4.0 mmol/L Normal 3.5-5.1 [facility] Comment on above: Performed By: #### L IPID, TSH, CMP, T7 #### [facility] [address] [place] [address] Dr. Earlene Lala Protein [Mass/Vol] 7.3 g/dL Normal 6.4-8.2 [facility] Comment on above: Performed By: #### L IPID, TSH, CMP, T7 #### [facility] [address] [place] [address] Dr. Earlene Lala Sodium [Moles/Vol] 140 mmol/L Normal 136-145 [facility] Comment on above: Performed By: #### L IPID, TSH, CMP, T7 #### [facility] [address] [place] [address] Dr. Earlene Lala Urea nitrogen [Mass/Vol] 12.0 mg/dL Normal 7.0-18.0 [facility] Comment on above: Performed By: #### L IPID, TSH, CMP, T7 #### [facility] [address] [place], [place] [address] Dr. Earlene Lala Urea nitrogen/Creatinine [Mass ratio] 14.8 mg/mg Normal [facility] Comment on above: Performed By: #### L IPID, TSH, CMP, T7 #### [facility] [address] [place], [place] [address] Dr. Earlene Lala TSHon 08-31-2022 TSH 6.386 uIU/mL Critically high 0.358-3.740 [facility] Comment on above: Performed By: #### L IPID, TSH, CMP, T7 #### [facility] [address] [place], [place] [address] Dr. Earlene Lala CBC, EDIF, PLATELETon 2021 Differential cell count method Nom (Bld) MANUAL DIFF % [facility] Erythrocyte distribution width (RBC) [Ratio] 13.4 % 11.5 - 14.5 % [facility] Hematocrit (Bld) [Volume fraction] 47.8 % 36.0 - 48.0 % [facility] Hemoglobin (Bld) [Mass/Vol] 16.4 g/dL High [facility] Immature granulocytes/100 WBC (Bld) 1 % 0.0 - 2.0 % [facility] Interpretation and review of laboratory results Abnormal [facility] Lymphocytes/100 WBC (Bld) 13 % Low 20.0 - 55.0 % [facility] MCH (RBC) [Entitic mass] 31.3 pg 26.0 - 35.0 PG [facility] MCHC (RBC) [Mass/Vol] 34.3 g/dL [facility] MCV (RBC) [Entitic vol] 91.1 fL [facility] Monocytes/100 WBC (Bld) 10 % 0.0 - 10.0 % [facility] Morphology Brian (Bld) [Interp] NORMAL [facility] Neutrophils/100 WBC (Bld) 76 % High 37.0 - 75.0 % [facility] Platelet mean volume (Bld) [Entitic vol] 7.7 fL [facility] Platelet morphology finding Nom (Bld) GIANT PLTS [facility] Platelets (Bld) [#/Vol] 239 10*3/uL 130.0 - 400.0 10*3/uL [facility] RBC (Bld) [#/Vol] 5.24 10*6/uL 4.0 - 5.4 10*6/uL [facility] WBC (Bld) [#/Vol] 5.4 10*3/uL 3.6 - 11.0 10*3/uL [facility] WBC MORPHOLOGY STATUS TOXIC GRAN [facility] Comment on above: ATYP LYMPHS [facility] COMPREHENSIVE METABOLIC PANE Kashif 10-15-2021 Albumin [Mass/Vol] 3.2 G/dl Low 3.5 - 5.0 G/dl [facility] Albumin/Globulin [Mass ratio] 0.8 {ratio} Low [facility] ALP [Catalytic activity/Vol] 55 U/L [facility] ALT [Catalytic activity/Vol] 65 U/L High [facility] AST [Catalytic activity/Vol] 57 U/L [facility] Bilirubin [Mass/Vol] 0.9 mg/dL [facility] Calcium [Mass/Vol] 9.1 mg/dL [facility] Chloride [Moles/Vol] 97 mmol/L Low [facility] CO2 [Moles/Vol] 25 mmol/L [facility] Creatinine [Mass/Vol] 0.94 mg/dL [facility] GFR COMMENT Average GFR for 60-69 years old = 85. [facility] Comment on above: Chronic Kidney disea se, GFR = <60. Kidney failure, GFR = <15. The GFR estimate is not adjusted for extreme body surface area or acute process, nor has it been validated for women or ethnic groups other than and . GFR/1.73 sq M.predicted among blacks MDRD (S/P/Bld) [Vol rate/Area] 77 mL/min/{1.73_m2} ml/min/1.73sq. m [facility] GFR/1.73 sq M.predicted among non-blacks MDRD (S/P/Bld) [Vol rate/Area] 64 mL/min/{1.73_m2} ml/min/1.73sq. m [facility] Glucose post fast [Mass/Vol] 118 mg/dL [facility] Comment on above: NORMAL <100 mg/dL PREDIABETES 101-126 mg/dL DIABETES 126 mg/dL or higher Interpretation and review of laboratory results Abnormal [facility] Potassium [Moles/Vol] 4.1 mmol/L [facility] Protein [Mass/Vol] 7.4 g/dL [facility] Sodium [Moles/Vol] 134 mmol/L Low [facility] Urea nitrogen [Mass/Vol] 15 mg/dL [facility] NOVEL CORONAVIRUS LAB 1 - NA SOPHARYNGEALon 10-15-2021 Interpretation and review of laboratory results Abnormal [facility] NARRATIVE -1 This test was performed using isothermal [employer] and has been approved as Emergency Use Authorization (EUA) for the qualitative detection vyMSED-MyT-4 nucleic acid. [facility] SARS-CoV-2 (COVID-19) RNA MARTA+probe Ql (Unsp spec) Detected Abnormal NOT DETECTED [facility] Comment on above: ENHANCED CONTACT, AN D DROPLET ISOLATION IS REQUIRED FOR INPATIENTS WITH SARS-CoV-2. [facility] XR CHEST PA 1 VIEWon 022 IMPRESSION: Mild bilateral lower lung interstitial opacities reflect infectious/inflamma tory infiltrates or atelectasis/scarrin g. RADIOLOGY EXAM: XR CHEST PA 1 VIEW HISTORY: cough COMPARISON: Chest x-ray 10/03/2016 TECHNIQUE: Single frontal view chest x-ray FINDINGS: Mild bilateral lower lung interstitial opacities reflect infectious/inflamma tory infiltrates or atelectasis/scarrin g. No large pleural effusions, pneumothorax, or acute bony abnormality. Cardiac size unremarkable. RADIOLOGY Alex Stevenson MD - 10/15/2021 EXAM: XR CHEST PA 1 VIEW HISTORY: cough COMPARISON: Chest x-ray 10/03/2016 TECHNIQUE: Single frontal view chest x-ray FINDINGS: Mild bilateral lower lung interstitial opacities reflect infectious/inflamma tory infiltrates or atelectasis/scarrin g. No large pleural effusions, pneumothorax, or acute bony abnormality. Cardiac size unremarkable. IMPRESSION IMPRESSION: Mild bilateral lower lung interstitial opacities reflect infectious/inflamma tory infiltrates or atelectasis/scarrin g. [facility] Radiology Study observation (narrative) [facility] XR CHEST PA 1 VIEWOrdered By : Alex Stevenson on 10-15-2021 [facility] Work Phone: Vital Signs Date Time Vital Sign Value Performing Clinician Ulisses urrutia 11-08-2024 02:23-0500 Diastolic blood pressure 115 mm[Hg] Janessa Martinez DO Work Phone: [facility] 11-08-2024 02:23-0500 Heart rate 66 /min Janessa Martinez DO Work Phone: [facility] 11-08-2024 02:23-0500 Respiratory rate 18 /min Janessa Martinez DO Work Phone: [facility] 11-08-2024 02:23-0500 SaO2% (BldA) [Mass fraction] 93 % Janessa Martinez DO Work Phone: [facility] 11-08-2024 02:23-0500 Systolic blood pressure 144 mm[Hg] Janessa Martinez DO Work Phone: [facility] 11-08-2024 00:08-0500 Body height 167.6 cm Janessa Martinez DO Work Phone: [employer] 11-08-2024 00:07-0500 Body temperature 98.4 [degF] Janessa Martinez DO Work Phone: [facility] 11-04-2024 15:08-0500 Diastolic blood pressure 72 mm[Hg] Temo Martinez MD Work Phone: [facility] 11-04-2024 15:08-0500 Heart rate 80 /min Temo Martinez MD Work Phone: [facility] 11-04-2024 15:08-0500 Respiratory rate 22 /min Temo Martinez MD Work Phone: [facility] 11-04-2024 15:08-0500 SaO2% (BldA) [Mass fraction] 96 % Temo Martinez MD Work Phone: [facility] 11-04-2024 15:08-0500 Systolic blood pressure 159 mm[Hg] Temo Martinez MD Work Phone: [facility] 11-04-2024 13:37-0500 Body height 167.6 cm Temo Martinez MD Work Phone: [facility] 11-04-2024 13:36-0500 Body temperature 99.61 [degF] Temo Martinez MD Work Phone: [facility] 10-14-2024 13:10-0500 Body height 168.9 cm Ifeanyi Bentontie [employer] Work Phone: [facility] 10-14-2024 13:10-0500 Body mass index (BMI) [Ratio] 44.36 kg/m2 Ifeanyi Gordon [employer] Work Phone: [facility] 10-14-2024 13:10-0500 Body weight 126.55 kg Ifeanyi Gordon [employer] Work Phone: [facility] 10-14-2024 13:10-0500 Diastolic blood pressure 76 mm[Hg] Ifeanyi Gordon [employer] Work Phone: [facility] 10-14-2024 13:10-0500 Heart rate 90 /min Ifeanyi Alona [employer] Work Phone: [facility] 10-14-2024 13:10-0500 Respiratory rate 16 /min Ifeanyi Alona [employer] Work Phone: [facility] 10-14-2024 13:10-0500 SaO2% (BldA) [Mass fraction] 96 % Ifeanyi Gordon [employer] Work Phone: [facility] 10-14-2024 13:10-0500 Systolic blood pressure 146 mm[Hg] Ifeanyi Gordon [employer] Work Phone: [facility] 08-01-2024 13:24-0500 Body height 168.9 cm Miladys Wright MD Work Phone: [facility] 08-01-2024 13:24-0500 Body mass index (BMI) [Ratio] 44.23 kg/m2 Miladys Wright MD Work Phone: [facility] 08-01-2024 13:24-0500 Body weight 126.19 kg Miladys Wright MD Work Phone: [facility] 08-01-2024 13:24-0500 Heart rate 74 /min Miladys Wright MD Work Phone: [facility] 08-01-2024 13:24-0500 SaO2% (BldA) [Mass fraction] 98 % Miladys Wright MD Work Phone: [facility] 07-15-2024 14:09-0500 Body height 168.9 cm Ifeanyi Sage CNP Work Phone: [facility] 07-15-2024 14:09-0500 Body mass index (BMI) [Ratio] 44.52 kg/m2 Ifeanyi Sage CNP Work Phone: [facility] 07-15-2024 14:09-0500 Body weight 127.01 kg Ifeanyi Sage CNP Work Phone: [facility] 07-15-2024 14:09-0500 Diastolic blood pressure 86 mm[Hg] Ifeanyi Bentontie KEYUR Work Phone: [facility] 07-15-2024 14:09-0500 Heart rate 63 /min Ifeanyi Bentontie KEYUR Work Phone: [facility] 07-15-2024 14:09-0500 Respiratory rate 16 /min Ifeanyi Bentontie KEYUR Work Phone: [facility] 07-15-2024 14:09-0500 SaO2% (BldA) [Mass fraction] 96 % Ifeanyi Sage CNP Work Phone: [facility] 07-15-2024 14:09-0500 Systolic blood pressure 140 mm[Hg] Ifeanyi Bentontie KEYUR Work Phone: [facility] 10-15-2021 23:39-0500 Body temperature 98.49 [degF] Temo Martinez MD Work Phone: [facility] 10-15-2021 23:39-0500 Diastolic blood pressure 67 mm[Hg] Temo Martinez MD Work Phone: [facility] 10-15-2021 23:39-0500 Heart rate 79 /min Temo Martinez MD Work Phone: [facility] 10-15-2021 23:39-0500 Respiratory rate 20 /min Temo Martinez MD Work Phone: [facility] 10-15-2021 23:39-0500 SaO2% (BldA) [Mass fraction] 96 % Temo Martinez MD Work Phone: [facility] 10-15-2021 23:39-0500 Systolic blood pressure 126 mm[Hg] Temo Martinez MD Work Phone: [facility] 10-15-2021 21:58-0500 Body height 167.6 cm Temo Martinez MD Work Phone: [facility] 10-15-2021 21:58-0500 Body mass index (BMI) [Ratio] 44.39 kg/m2 Temo Martinez MD Work Phone: [facility] 10-15-2021 21:58-0500 Body weight 124.74 kg Temo Martinez MD Work Phone: [facility] Encounters Encounter Date Encounter Type Care Provider Facility Start: 11-08-2024 End: 11-08-2024 Emergency department patient visit Janessa Martinez DO Work Phone: [facility] Emergency Department Start: 11-04-2024 End: 11-04-2024 Emergency department patient visit Temo Martinez MD Work Phone: [facility] Emergency Department Start: 10-14-2024 End: 10-14-2024 Office outpatient visit 25 minutes Ifeanyi Sage CNP Work Phone: [facility] Comment on above: Hypothyroidism, unsp ecified type (Primary Dx); Class 3 severe obesity due to excess calories with body mass index (BMI) of 40.0 to 44.9 in adult, unspecified whether serious comorbidity present Start: 10-14-2024 ambulatory [facility] Start: 10-08-2024 ambulatory ANA Mejia [facility] Start: 08-01-2024 End: 08-01-2024 Office outpatient new 30 minutes Miladys Wright MD Work Phone: [facility] General Surgery Comment on above: Inclusion cyst (Prim nati Dx) Start: 08-01-2024 ambulatory ANA QUEZADA [facility] Start: 07-15-2024 End: 07-15-2024 Office outpatient new 45 minutes Ifeanyi Sage CNP Work Phone: [facility] Comment on above: Hypothyroidism, unsp ecified type (Primary Dx); Class 3 severe obesity due to excess calories with body mass index (BMI) of 40.0 to 44.9 in adult, unspecified whether serious comorbidity present Start: 07-15-2024 ambulatory ANA QUEZADA [facility] Start: 08-31-2022 End: 09-01-[address] ANA QUEZADA Facility: Start: 10-15-2021 End: 10-15-2021 Emergency department patient visit Temo Martinez MD Work Phone: [facility] Emergency Department Procedures Date Procedure Procedure Detail Performing Clinician Start: 11-08-2024 Ecg routine ecg w/le ast 12 lds w/i&r Janessa Martinez DO Work Phone: Start: 11-08-2024 Radiologic exam ches t single view Janessa Martinez DO Work Phone: Start: 11-08-2024 Complete blood count with white cell differential, automated Janessa Martinez DO Work Phone: Start: 11-08-2024 Comprehensive metabo lic panel Janessa Martinez DO Work Phone: Start: 11-04-2024 Radiologic exam ches t single view Temo Martinez MD Work Phone: Start: 11-04-2024 Infectious agent dna /rna influenza 1st 2 types Temo Martinez MD Work Phone: Start: 10-15-2021 Iadna nos amplified probe tq each organism Temo Martinez MD Work Phone: Start: 10-15-2021 Radiologic exam ches t single view Temo Martinez MD Work Phone: Start: 10-15-2021 Complete blood count with white cell differential, automated Temo Martinez MD Work Phone: Start: 10-15-2021 Comprehensive metabo lic panel Temo Martinez MD Work Phone: Plan of Treatment Date Care Activity Detail Author Start: 11-08-2025 Thyroid stimulating hormone measurement TSH [facility] Start: 10-08-2025 Thyroid stimulating hormone measurement TSH [facility] Start: 07-15-2025 Thyroid stimulating hormone measurement TSH [facility] Start: 04-14-2025 End: 04-14-2025 Patient encounter procedure 04/14/2025 1:30 PM EDT Office Visit [facility] [address] [place] [id number] Ifeanyi Sage, [employer] [address] [address] [facility] Start: 12-28-2024 End: 10-14-2025 TSH W/FT4 REFLEX TSH W/FT4 REFLEX Lab Routine Hypothyroidism, unspecified type Expected: 12/28/2024 (Approximate), Expires: 10/14/2025 [facility] Comment on above: Expected: 12/28/2024 (Approximate), Expires: 10/14/2025 Start: 09-19-2024 End: 09-19-2024 Patient encounter procedure 09/19/2024 9:30 AM EST Office Visit [address] [place] [id number] Ifeanyi Sage, [employer] [address] [address] [facility] Start: 05-12-2024 COVID-19 VACCINE ( season) COVID-19 VACCINE ( season) [facility] Start: 05-12-2024 Influenza vaccination INFLUENZA VACC INE (#1) [facility] Start: 2022 Pneumococcal vaccination PNEUMOCOCCAL VACCINE SERIES (1 of 1 - PCV) [facility] Start: 05-12-2021 Influenza vaccination INFLUENZA VACC INE (#1) [facility] Start: 2017 RSV VACCINE (1 - 1-dose 60+ series) RSV VACCINE (1 - 1-dose 60+ series) [facility] Start: 2017 RSV VACCINE (1 - Ris k 60-74 years 1-dose series) RSV VACCINE (1 - Risk 60-74 years 1-dose series) [facility] Start: 2007 Pneumococcal vaccination PNEUMOCOCCAL VACCINE SERIES (1 of 1 - PCV) [facility] Start: 2007 Zoster vaccine hzv live for subcutaneous use ZOSTER (SHINGLES) VACCINE (1 of 2) [facility] Start: 2002 Colonoscopy COLORECTAL CAN CER SCREENING DISCUSSION [facility] Start: 2002 Screening for malignant neoplasm of colon COLORECTAL CANCER SCREENING DISCUSSION [facility] Start: 1997 Fasting lipid profile LIPID SCREENIN G [facility] Start: 1997 Lipid panel LIPID SCREENING [facility] Start: 1997 Screening for malignant neoplasm of breast MAMMOGRAM SCREENING DISCUSSION [facility] Start: 1997 Screening mammography MAMMOGRA M SCREENING DISCUSSION [facility] Start: 1978 Screening for malignant neoplasm of cervix CERVICAL CANCER SCREENING DISCUSSION [facility] Start: 1976 Third diphtheria, tetanus and acellular pertussis (DTaP) vaccination TDAP (ADULT) [facility] Start: 1975 Tetanus vaccination TETANUS [facility] Start: 1972 HIV screening HIV SCREENING DISCUSSION [facility] Start: 1962 COVID-19 VACCINE (1) COVID-19 VACCIN E (1) [facility] Start: 1957 Hepatitis C antibody , confirmatory test HEPATITIS C VIRUS SCREENING [facility] Start: 1957 Hepatitis C screening HEPATITI S C VIRUS SCREENING [facility] Start: 1957 Screening for osteoporosis DEXA SCAN DISCUSSION [facility] Start: 1957 Tetanus vaccination TETANUS [facility] Standard ECG ECG ECG STAT 1:31 AM EST [facility] Payers Date Payer Category Payer Medicare (Managed Care) MEDICARE ANTH HMO [id number] 2022 Medicare [id number] 1959 Unknown [id number] 1957 Unknown [id number] 1957 Unknown [id number] 1957 Unknown [id number] 1957 Unknown [id number] 1957 Unknown [id number] [id number] 1957 Unknown [id number] [id number] 1957 Unknown [id number] 1957 Unknown [id number] Social History Date Type Detail Facility Start: 10-15-2021 End: 07-15-2024 Tobacco smoking status NHIS Never smoked tobacco [facility] Start: 10-15-2021 End: 07-15-2024 Tobacco use and exposure Smokeless tobacco non-user [facility] Start: 10-15-2021 End: 07-15-2024 Alcohol intake Ex-drinker (finding) [facility] Start: 1955 Sex Assigned At Not on file A [facility] Exposure to SARS-CoV -2 (event) Yes [facility] Start: 07-15-2024 End: 11-08-2024 History of Social function [facility] Start: 07-15-2024 End: 11-08-2024 Tobacco use panel [facility] Start: 08-01-2024 End: 11-08-2024 Alcoholic beverage intake Lifetime non-drinker (finding) [facility] Start: 10-15-2021 Sex Female (finding) [facility] Clinical Notes 10-15-2021 to 11-08-2024 Discharge InstructionsAttaAdelia Martinez DO - 11/08/2024 12:13 AM Anuj Martinez DO - 11/08/2024 12:13 AM Jacki Mckay RN - 11/08/2024 12:12 AM ESTCanayesha Mabry - 08/01/2024 1:30 PM EST Note Date & Type Note Facility 11-08-2024 Hospital Discharg e instructions Janessa Martinez DO - 11/08/2024 2:24 AM EST Increase fluids. Drink plenty of water. Stay hydrated. Tylenol as needed for pain fever and body aches. Use as directed. Robitussin DM 10 mL every 6 hours as needed for cough and congestion. Flonase nasal spray 2 spray bilateral nares twice a day for 7 days. Zithromax 500 mg daily for 5 days. Recheck with your primary care provider 2-3 days. Call office for appointment. Return if worse cough, congestion, runny nose/drainage, shortness of breath, nausea/vomiting, abdominal pain, weakness/lethargy, poor oral intake, fever. The following attachments cannot be sent through Care Everywhere.URI (Upper Respiratory Infection): Viral (Maltese)Influenza (Maltese)Acute Bronchitis or Chest Cold Care Instructions ([facility]) (Maltese)documented in this encounter [facility] 11-08-2024 Physician Emergen cy department Note Emergency Department Report [facility] EMERGENCY DEPARTMENT Service Date:.11/08/24 PCP: Ana Quezada Chief Complaint: Chief Complaint Patient presents with Flu Dx with flu on Monday, no improvement, unable to tolerate po, note 87% on room air. 2L O2 applied via NC HPI Ryanne Retana is a 69 y.o. female presents to the ED today due to shortness of breath. 69-year-old female who was seen here 3 days ago with similar complaint and was diagnosed with influenza A. Had a chest x-ray at that time read by radiologist as low lung volume no acute process. Patient was states she was more short of breath. Coughing and congested. Feels nauseous. Has not been eating or drinking much. Denies any abdominal pain. No vomiting. No diarrhea. Review of Systems: Review of Systems Constitutional: Negative for chills, fever and unexpected weight change. HENT: Positive for congestion and rhinorrhea. Negative for sore throat, trouble swallowing and voice change. Eyes: Negative for redness and visual disturbance. Respiratory: Positive for cough and shortness of breath. Negative for wheezing. Cardiovascular: Negative for chest pain, palpitations and leg swelling. Gastrointestinal: Positive for nausea. Negative for abdominal pain and vomiting. Genitourinary: Negative for flank pain, frequency and urgency. Musculoskeletal: Negative for back pain and neck pain. Skin: Negative for pallor and rash. Neurological: Positive for weakness. Negative for dizziness and headaches. Generalized weakness. All other systems reviewed and are negative. Past Medical History: Past Medical History: Diagnosis Date Hypothyroidism Past Surgical History: Past Surgical History: Procedure Laterality Date CYSTECTOMY 2015 CHOLECYSTECTOMY 2006 HYSTERECTOMY Allergies: Allergies Allergen Reactions Latex Medications: Patient's Medications New Prescriptions AZITHROMYCIN 500 MG TABLET Take 1 tablet by mouth daily for 5 days. FLUTICASONE 50 MCG/ACT SUSPENSION NASAL SPRAY 2 sprays per nostril b.i.d. for 7 days. GUAIFENESIN-DEXTROMETHORPHAN 100-10 MG/5ML SYRUP Take 10 mL by mouth every 6 hours as needed for Cough or Congestion. Previous Medications ALBUTEROL 108 (90 BASE) MCG/ACT AERO SOLN INHALER Inhale 2 puffs every 4 hours as needed. CETIRIZINE HCL (ZYRTEC ALLERGY PO) Take by mouth After meals as needed. LEVOTHYROXINE 50 MCG TABLET Take 1 tablet by mouth every morning before breakfast. PANTOPRAZOLE [address] TABLET DR Take 1 tablet by mouth as needed for Other. Modified Medications No medications on file Discontinued Medications GUAIFENESIN-DEXTROMETHORPHAN 100-10 MG/5ML SYRUP Take 5-10 mL by mouth every 4 hours as needed for Cough. Family History: Family History Problem Relation Age of Onset Cancer- Other Mother throat Breast Cancer Mother Lung Cancer Father Cancer- Other Father brain, stomach Social History: Social History Socioeconomic History Marital status: Spouse name: Not on file Number of children: Not on file Years of education: Not on file Highest education level: Not on file Occupational History Not on file Tobacco Use Smoking status: Never Smokeless tobacco: Never Vaping Use Vaping status: Never Used Substance and Sexual Activity Alcohol use: Never Drug use: Never Sexual activity: Yes Partners: Male Other Topics Concern Not on file Social History Narrative Not on file Social Drivers of Health Financial Resource Strain: Not on file Food Insecurity: Not on file Transportation Needs: Not on file Physical Activity: Not on file Stress: Not on file Social Connections: Not on file Personal Safety: Not on file Housing Stability: Not on file Physical Exam: Nursing notes and vital signs reviewed. 69-year-old female sitting up in the exam bed does not appear to be in any acute distress. Poor inspiratory effort. Some mild scattered wheezing but no rales or rhonchi. Does not appear to be in any respiratory distress. No verbal dyspnea. No tachypnea. He was no costal retractions. No accessory muscle use. Heart is regular rate and rhythm no gallop or ectopy. No murmur appreciated. S1-S2 are distant. No peripheral edema or cyanosis. Mouth is moist. Throat is clear. Airway is patent. Mild moderate nasal congestion with some posterior drainage. TMs are intact and clear. Eyes PERRLA no conjunctival injection. Abdomen is morbidly obese. Soft and nontender. Bowel sounds are present throughout. There is no rebound or guarding. No obvious hernias or pulsatile mass. Extremities no ankle or pedal edema. No calf tenderness on palpation. Skin exam no rash or pallor. Back exam is unremarkable no tenderness on palpation. No flank pain on percussion. Neuro exam alert and oriented x3 no focal deficits. Vital Signs During ED Visit Patient Vitals for the past 24 hrs: BP Temp Temp src Pulse Resp SpO2 Height 11/08/24 0121 -- -- -- -- -- 99 % -- 11/08/24 0100 138/78 -- -- 64 21 94 % -- 11/08/24 0010 -- -- -- 80 22 93 % -- 11/08/24 0008 -- -- -- -- -- -- 1.676 m (5' 6 ) 11/08/24 0007 150/70 98.4 F (36.9 C) Oral 71 22 (!) 87 % -- Orders/Results: Orders Placed This Encounter XR CHEST 1 VIEW PORTABLE CBC, EDIF, PLATELET COMPREHENSIVE METABOLIC PANEL LIPASE TSH TROPONIN ECG Sodium chloride 0.9% IV solution 500 mL Sodium chloride 0.9% IV solution guaiFENesin-dextromethorphan (ROBITUSSIN DM) 100-10 MG/5ML syrup 10 mL benzonatate (TESSALON) capsule 200 mg oxymetazoline (AFRIN) 0.05 % nasal spray 2 spray guaiFENesin-dextromethorphan 100-10 MG/5ML Syrup fluticasone 50 MCG/ACT Suspension nasal spray azithromycin 500 MG tablet Twelve lead EKG normal sinus rhythm with ventricular rate of 66 beats per minute. Nonspecific T-wave abnormality. No ST segment elevation or depression no sign of ischemia injury. Mild baseline motion artifact. EKG interpreted by me. No prior EKG for comparison. Results for orders placed or performed during the hospital encounter of 11/08/24 CBC, EDIF, PLATELET Result Value Ref Range WBC (WHITE BLOOD COUNT) 3.5 (L) 3.6 - 11.0 10*3/uL RBC 4.75 4.0 - 5.4 10*6/uL HEMOGLOBIN (HGB) 14.7 12.0 - 16.0 G/DL HEMATOCRIT (HCT) 42.9 36.0 - 48.0 % MEAN CELL VOLUME 90.3 80.0 - 100.0 FL Mean Cell HGB 31.0 26.0 - 35.0 PG MEAN CELL HGB CONCENTRATION 34.3 27.0 - 37.0 G/DL RBC DISTRIBUTION 12.9 11.5 - 14.5 % PLATELET COUNT 165 130 - 400 10*3/uL MEAN PLATELET VOLUME 8.0 7.4 - 11.0 FL DIFFERENTIAL TYPE AUTO DIFF % NEUTROPHILS 65.2 37.0 - 75.0 % LYMPHOCYTE 22.5 20.0 - 55.0 % MONOCYTE % 11.9 (H) 0.0 - 10.0 % EOSINOPHIL % 0.0 0.0 - 11.0 % BASOPHIL % 0.4 0.0 - 2.0 % Absolute Neutrophil Count 2.3 1.4 - 6.5 10*3/uL LYMPHOCYTES, ABSOLUTE 0.8 (L) 1.2 - 3.4 10*3/uL MONOCYTES, ABSOLUTE 0.4 0.0 - 0.7 10*3/uL ABSOLUTE EOSINOPHIL COUNT 0.0 0.0 - 0.7 10*3/uL ABSOLUTE BASOPHIL COUNT 0.0 0.0 - 0.2 10*3/uL COMPREHENSIVE METABOLIC PANEL Result Value Ref Range Glucose 105 (H) 70 - 100 MG/DL BUN 16 7 - 20 MG/DL CREATININE SERUM 0.84 0.70 - 1.20 MG/DL SODIUM 132 (L) 137 - 145 MMOL/L Potassium 3.6 3.5 - 5.1 MMOL/L CHLORIDE 91 (L) 98 - 107 MMOL/L CALCIUM 8.3 (L) 8.4 - 10.2 MG/DL PROTEIN, TOTAL 6.5 6.3 - 8.2 GM/DL Albumin 3.4 (L) 3.5 - 5.0 G/dl BILIRUBIN, TOTAL 0.6 0.2 - 1.3 MG/DL AST 117 (H) 14 - 36 IU/L ALKALINE PHOSPHATASE 60 38 - 126 IU/L CARBON DIOXIDE (CO2) 32 (H) 22 - 30 MMOL/L A/G Ratio 1.1 RATIO ALT 58 (H) <35 IU/L ESTIMATED GFR, NON AMER 72 ml/min/1.73sq.m ESTIMATED GFR, 87 ml/min/1.73sq.m GFR COMMENT Average GFR for 60-69 years old = 85. LIPASE Result Value Ref Range LIPASE 93 23 - 300 U/L TSH Result Value Ref Range TSH 1.140 0.465 - 4.680 uIU/ML TROPONIN Result Value Ref Range TROPONIN 0.04 0 - 0.08 ng/mL Radiographic Imaging XR CHEST 1 VIEW PORTABLE Final Result IMPRESSION: Hazy airspace opacities are seen in the left lower lung, which may represent hazy infiltrates. Please correlate clinically. Procedures: Procedures Moderate Sedation Procedure: No ED Summary/MDM Differential diagnosis; upper respiratory infection, viral syndrome, influenza, COVID, sinusitis, pharyngitis, bronchitis, pneumonia. 69-year-old female here earlier this week and diagnosed with a influenza. States she was getting worse. Having cough. Congestion. Shortness of breath. Weakness. Not eating or drinking much. States she has been using Dasha-Welcome and it is not helping. History of hypothyroidism is on Synthroid. Not a smoker. Apparently son sick at home with similar symptoms. 0220. States she was feeling better wants to go home. Lungs are clear. Patient was not in any respiratory distress. Pulse ox running in the mid to low 90s on room air. Lab works CBC is normal. Not anemic. CMP normal. Lipase normal. Troponins negative. TSH is normal. Portable chest x-ray poor inspiratory effort. Infiltrates in the bases. Radiologist's says he was E infiltrate. I do not think she was a pneumonic infiltrate. She does not have a fever. White counts normal. Most likely viral infection and bronchitis. I will treat her for upper respiratory infection and bronchitis. She also has the flu. Robitussin DM and Flonase and Zithromax. Take as directed. Increase fluids. Drink plenty of water. Stay hydrated. Recheck with your primary care provider in 2-4 days. Call office for appointment. Return if worse cough, congestion, runny nose/drainage, shortness of breath, wheezing, nausea/vomiting, abdominal pain, weakness/lethargy, poor oral intake, fever. Discharged home in improved stable condition with her . They both voiced understanding of the discharge instructions. Clinical Impression: 1. Upper respiratory tract infection, unspecified type 2. Influenza A 3. Bronchitis No follow-ups on file. New Prescriptions AZITHROMYCIN 500 MG TABLET Take 1 tablet by mouth daily for 5 days. FLUTICASONE 50 MCG/ACT SUSPENSION NASAL SPRAY 2 sprays per nostril b.i.d. for 7 days. GUAIFENESIN-DEXTROMETHORPHAN 100-10 MG/5ML SYRUP Take 10 mL by mouth every 6 hours as needed for Cough or Congestion. Discontinued Medications GUAIFENESIN-DEXTROMETHORPHAN 100-10 MG/5ML SYRUP Take 5-10 mL by mouth every 4 hours as needed for Cough. An After Visit Summary was printed and given to the patient with above information. . Janessa Martinez DO 11/08/24 0251 [facility] 11-08-2024 Emergency departm ent Note Emergency Department Report [facility] EMERGENCY DEPARTMENT Service Date:.11/08/24 PCP: Ana Quezada Chief Complaint: Chief Complaint Patient presents with Flu Dx with flu on Monday, no improvement, unable to tolerate po, note 87% on room air. 2L O2 applied via [place] HPI Ryanne Retana is a 69 y.o. female presents to the ED today due to shortness of breath. 69-year-old female who was seen here 3 days ago with similar complaint and was diagnosed with influenza A. Had a chest x-ray at that time read by radiologist as low lung volume no acute process. Patient was states she was more short of breath. Coughing and congested. Feels nauseous. Has not been eating or drinking much. Denies any abdominal pain. No vomiting. No diarrhea. Review of Systems: Review of Systems Constitutional: Negative for chills, fever and unexpected weight change. HENT: Positive for congestion and rhinorrhea. Negative for sore throat, trouble swallowing and voice change. Eyes: Negative for redness and visual disturbance. Respiratory: Positive for cough and shortness of breath. Negative for wheezing. Cardiovascular: Negative for chest pain, palpitations and leg swelling. Gastrointestinal: Positive for nausea. Negative for abdominal pain and vomiting. Genitourinary: Negative for flank pain, frequency and urgency. Musculoskeletal: Negative for back pain and neck pain. Skin: Negative for pallor and rash. Neurological: Positive for weakness. Negative for dizziness and headaches. Generalized weakness. All other systems reviewed and are negative. Past Medical History: Past Medical History: Diagnosis Date Hypothyroidism Past Surgical History: Past Surgical History: Procedure Laterality Date CYSTECTOMY 2015 CHOLECYSTECTOMY 2006 HYSTERECTOMY Allergies: Allergies Allergen Reactions Latex Medications: Patient's Medications New Prescriptions AZITHROMYCIN 500 MG TABLET Take 1 tablet by mouth daily for 5 days. FLUTICASONE 50 MCG/ACT SUSPENSION NASAL SPRAY 2 sprays per nostril b.i.d. for 7 days. GUAIFENESIN-DEXTROMETHORPHAN 100-10 MG/5ML SYRUP Take 10 mL by mouth every 6 hours as needed for Cough or Congestion. Previous Medications ALBUTEROL 108 (90 BASE) MCG/ACT AERO SOLN INHALER Inhale 2 puffs every 4 hours as needed. CETIRIZINE HCL (ZYRTEC ALLERGY PO) Take by mouth After meals as needed. LEVOTHYROXINE 50 MCG TABLET Take 1 tablet by mouth every morning before breakfast. PANTOPRAZOLE [address] TABLET DR Take 1 tablet by mouth as needed for Other. Modified Medications No medications on file Discontinued Medications GUAIFENESIN-DEXTROMETHORPHAN 100-10 MG/5ML SYRUP Take 5-10 mL by mouth every 4 hours as needed for Cough. Family History: Family History Problem Relation Age of Onset Cancer- Other Mother throat Breast Cancer Mother Lung Cancer Father Cancer- Other Father brain, stomach Social History: Social History Socioeconomic History Marital status: Spouse name: Not on file Number of children: Not on file Years of education: Not on file Highest education level: Not on file Occupational History Not on file Tobacco Use Smoking status: Never Smokeless tobacco: Never Vaping Use Vaping status: Never Used Substance and Sexual Activity Alcohol use: Never Drug use: Never Sexual activity: Yes Partners: Male Other Topics Concern Not on file Social History Narrative Not on file Social Drivers of Health Financial Resource Strain: Not on file Food Insecurity: Not on file Transportation Needs: Not on file Physical Activity: Not on file Stress: Not on file Social Connections: Not on file Personal Safety: Not on file Housing Stability: Not on file Physical Exam: Nursing notes and vital signs reviewed. 69-year-old female sitting up in the exam bed does not appear to be in any acute distress. Poor inspiratory effort. Some mild scattered wheezing but no rales or rhonchi. Does not appear to be in any respiratory distress. No verbal dyspnea. No tachypnea. He was no costal retractions. No accessory muscle use. Heart is regular rate and rhythm no gallop or ectopy. No murmur appreciated. S1-S2 are distant. No peripheral edema or cyanosis. Mouth is moist. Throat is clear. Airway is patent. Mild moderate nasal congestion with some posterior drainage. TMs are intact and clear. Eyes PERRLA no conjunctival injection. Abdomen is morbidly obese. Soft and nontender. Bowel sounds are present throughout. There is no rebound or guarding. No obvious hernias or pulsatile mass. Extremities no ankle or pedal edema. No calf tenderness on palpation. Skin exam no rash or pallor. Back exam is unremarkable no tenderness on palpation. No flank pain on percussion. Neuro exam alert and oriented x3 no focal deficits. Vital Signs During ED Visit Patient Vitals for the past 24 hrs: BP Temp Temp src Pulse Resp SpO2 Height 11/08/24 0121 -- -- -- -- -- 99 % -- 11/08/24 0100 138/78 -- -- 64 21 94 % -- 11/08/24 0010 -- -- -- 80 22 93 % -- 11/08/24 0008 -- -- -- -- -- -- 1.676 m (5' 6 ) 11/08/24 0007 150/70 98.4 F (36.9 C) Oral 71 22 (!) 87 % -- Orders/Results: Orders Placed This Encounter XR CHEST 1 VIEW PORTABLE CBC, EDIF, PLATELET COMPREHENSIVE METABOLIC PANEL LIPASE TSH TROPONIN ECG Sodium chloride 0.9% IV solution 500 mL Sodium chloride 0.9% IV solution guaiFENesin-dextromethorphan (ROBITUSSIN DM) 100-10 MG/5ML syrup 10 mL benzonatate (TESSALON) capsule 200 mg oxymetazoline (AFRIN) 0.05 % nasal spray 2 spray guaiFENesin-dextromethorphan 100-10 MG/5ML Syrup fluticasone 50 MCG/ACT Suspension nasal spray azithromycin 500 MG tablet Twelve lead EKG normal sinus rhythm with ventricular rate of 66 beats per minute. Nonspecific T-wave abnormality. No ST segment elevation or depression no sign of ischemia injury. Mild baseline motion artifact. EKG interpreted by me. No prior EKG for comparison. Results for orders placed or performed during the hospital encounter of 11/08/24 CBC, EDIF, PLATELET Result Value Ref Range WBC (WHITE BLOOD COUNT) 3.5 (L) 3.6 - 11.0 10*3/uL RBC 4.75 4.0 - 5.4 10*6/uL HEMOGLOBIN (HGB) 14.7 12.0 - 16.0 G/DL HEMATOCRIT (HCT) 42.9 36.0 - 48.0 % MEAN CELL VOLUME 90.3 80.0 - 100.0 FL Mean Cell HGB 31.0 26.0 - 35.0 PG MEAN CELL HGB CONCENTRATION 34.3 27.0 - 37.0 G/DL RBC DISTRIBUTION 12.9 11.5 - 14.5 % PLATELET COUNT 165 130 - 400 10*3/uL MEAN PLATELET VOLUME 8.0 7.4 - 11.0 FL DIFFERENTIAL TYPE AUTO DIFF % NEUTROPHILS 65.2 37.0 - 75.0 % LYMPHOCYTE 22.5 20.0 - 55.0 % MONOCYTE % 11.9 (H) 0.0 - 10.0 % EOSINOPHIL % 0.0 0.0 - 11.0 % BASOPHIL % 0.4 0.0 - 2.0 % Absolute Neutrophil Count 2.3 1.4 - 6.5 10*3/uL LYMPHOCYTES, ABSOLUTE 0.8 (L) 1.2 - 3.4 10*3/uL MONOCYTES, ABSOLUTE 0.4 0.0 - 0.7 10*3/uL ABSOLUTE EOSINOPHIL COUNT 0.0 0.0 - 0.7 10*3/uL ABSOLUTE BASOPHIL COUNT 0.0 0.0 - 0.2 10*3/uL COMPREHENSIVE METABOLIC PANEL Result Value Ref Range Glucose 105 (H) 70 - 100 MG/DL BUN 16 7 - 20 MG/DL CREATININE SERUM 0.84 0.70 - 1.20 MG/DL SODIUM 132 (L) 137 - 145 MMOL/L Potassium 3.6 3.5 - 5.1 MMOL/L CHLORIDE 91 (L) 98 - 107 MMOL/L CALCIUM 8.3 (L) 8.4 - 10.2 MG/DL PROTEIN, TOTAL 6.5 6.3 - 8.2 GM/DL Albumin 3.4 (L) 3.5 - 5.0 G/dl BILIRUBIN, TOTAL 0.6 0.2 - 1.3 MG/DL AST 117 (H) 14 - 36 IU/L ALKALINE PHOSPHATASE 60 38 - 126 IU/L CARBON DIOXIDE (CO2) 32 (H) 22 - 30 MMOL/L A/G Ratio 1.1 RATIO ALT 58 (H) <35 IU/L ESTIMATED GFR, NON AMER 72 ml/min/1.73sq.m ESTIMATED GFR, 87 ml/min/1.73sq.m GFR COMMENT Average GFR for 60-69 years old = 85. LIPASE Result Value Ref Range LIPASE 93 23 - 300 U/L TSH Result Value Ref Range TSH 1.140 0.465 - 4.680 uIU/ML TROPONIN Result Value Ref Range TROPONIN 0.04 0 - 0.08 ng/mL Radiographic Imaging XR CHEST 1 VIEW PORTABLE Final Result IMPRESSION: Hazy airspace opacities are seen in the left lower lung, which may represent hazy infiltrates. Please correlate clinically. Procedures: Procedures Moderate Sedation Procedure: No ED Summary/MDM Differential diagnosis; upper respiratory infection, viral syndrome, influenza, COVID, sinusitis, pharyngitis, bronchitis, pneumonia. 69-year-old female here earlier this week and diagnosed with a influenza. States she was getting worse. Having cough. Congestion. Shortness of breath. Weakness. Not eating or drinking much. States she has been using Dasha-Welcome and it is not helping. History of hypothyroidism is on Synthroid. Not a smoker. Apparently son sick at home with similar symptoms. 0220. States she was feeling better wants to go home. Lungs are clear. Patient was not in any respiratory distress. Pulse ox running in the mid to low 90s on room air. Lab works CBC is normal. Not anemic. CMP normal. Lipase normal. Troponins negative. TSH is normal. Portable chest x-ray poor inspiratory effort. Infiltrates in the bases. Radiologist's says he was E infiltrate. I do not think she was a pneumonic infiltrate. She does not have a fever. White counts normal. Most likely viral infection and bronchitis. I will treat her for upper respiratory infection and bronchitis. She also has the flu. Robitussin DM and Flonase and Zithromax. Take as directed. Increase fluids. Drink plenty of water. Stay hydrated. Recheck with your primary care provider in 2-4 days. Call office for appointment. Return if worse cough, congestion, runny nose/drainage, shortness of breath, wheezing, nausea/vomiting, abdominal pain, weakness/lethargy, poor oral intake, fever. Discharged home in improved stable condition with her . They both voiced understanding of the discharge instructions. Clinical Impression: 1. Upper respiratory tract infection, unspecified type 2. Influenza A 3. Bronchitis No follow-ups on file. New Prescriptions AZITHROMYCIN 500 MG TABLET Take 1 tablet by mouth daily for 5 days. FLUTICASONE 50 MCG/ACT SUSPENSION NASAL SPRAY 2 sprays per nostril b.i.d. for 7 days. GUAIFENESIN-DEXTROMETHORPHAN 100-10 MG/5ML SYRUP Take 10 mL by mouth every 6 hours as needed for Cough or Congestion. Discontinued Medications GUAIFENESIN-DEXTROMETHORPHAN 100-10 MG/5ML SYRUP Take 5-10 mL by mouth every 4 hours as needed for Cough. An After Visit Summary was printed and given to the patient with above information. . Janessa Martinez DO 11/08/[address] Martinez notified of patient's arrival- and tight aeration- Dr. Martinez to be at bedside. documented in this encounter [facility] 11-08-[address]24 Emergency departm ent Note Dr. Martinez notified of patient's arrival- and tight aeration- Dr. Martinez to be at bedside. [facility] 11-04-2024 Emergency departm ent Note RT called [facility] 11-04-2024 Emergency departm ent Note RT called Emergency Department Report [facility] EMERGENCY DEPARTMENT Service Date:.11/04/24 PCP: Ana Quezada Chief Complaint: Chief Complaint Patient presents with Cough Patient reports dry cough, body aches, and dry heaving Nausea ARNOLD Retana is a 69 y.o. female presents to the ED with chief complaint of cough congestion and dry heaving when coughing real hard. Patient states she has been sick for the past 3 days. There has been no shaking chills but she was felt hot. She states she has felt chilled though. She complains of fatigue and nausea. She denies constipation or diarrhea. She states she was had decreased oral intake and food just does not taste good. She does not smoke. She denies hemoptysis. She denies any travel Review of Systems: Review of Systems Seven systems have been reviewed and are negative unless listed specifically as positive in the HPI Past Medical History: Past Medical History: Diagnosis Date Hypothyroidism Past Surgical History: Past Surgical History: Procedure Laterality Date CYSTECTOMY 2015 CHOLECYSTECTOMY 2006 HYSTERECTOMY Allergies: Allergies Allergen Reactions Latex Medications: Patient's Medications New Prescriptions ALBUTEROL 108 (90 BASE) MCG/ACT AERO SOLN INHALER Inhale 2 puffs every 4 hours as needed. GUAIFENESIN-DEXTROMETHORPHAN 100-10 MG/5ML SYRUP Take 5-10 mL by mouth every 4 hours as needed for Cough. Previous Medications CETIRIZINE HCL (ZYRTEC ALLERGY PO) Take by mouth After meals as needed. LEVOTHYROXINE 50 MCG TABLET Take 1 tablet by mouth every morning before breakfast. PANTOPRAZOLE [address] TABLET DR Take 1 tablet by mouth as needed for Other. Modified Medications No medications on file Discontinued Medications No medications on file Family History: Family History Problem Relation Age of Onset Cancer- Other Mother throat Breast Cancer Mother Lung Cancer Father Cancer- Other Father brain, stomach Social History: Social History Socioeconomic History Marital status: Spouse name: Not on file Number of children: Not on file Years of education: Not on file Highest education level: Not on file Occupational History Not on file Tobacco Use Smoking status: Never Smokeless tobacco: Never Vaping Use Vaping status: Never Used Substance and Sexual Activity Alcohol use: Never Drug use: Never Sexual activity: Yes Partners: Male Other Topics Concern Not on file Social History Narrative Not on file Social Drivers of Health Financial Resource Strain: Not on file Food Insecurity: Not on file Transportation Needs: Not on file Physical Activity: Not on file Stress: Not on file Social Connections: Not on file Personal Safety: Not on file Housing Stability: Not on file Physical Exam: Physical Exam General: Well-developed well-nourished HENT: Head is atraumatic. Face is symmetric. Mucous membranes are hydrated Eyes: Pupils are equal Skin: Warm and dry no rash Abdomen: Soft. No distention guarding or rebound Respiratory: Clear. No rhonchi. Coughing frequently Heart: Heart tones are regular Neurologic: Awake, alert, oriented, answering questions appropriately. Moving all extremities well Lymphatic: No anterior-posterior cervical lymphadenopathy Musculoskeletal: No trauma no fracture Psychiatric: Cooperative with the examiner Vital Signs During ED Visit Patient Vitals for the past 24 hrs: BP Temp Temp src Pulse SpO2 Height 11/04/24 1337 -- -- -- -- -- 1.676 m (5' 6 ) 11/04/24 1336 163/75 99.6 F (37.6 C) Oral 75 96 % -- Orders/Results: Results for orders placed or performed during the hospital encounter of 11/04/24 [facility] 1 - NASOPHARYNGEAL Specimen: NASOPHARYNGEAL; Fluid/Swab Result Value Ref Range SARS COV 2 RNA, QL REAL TIME RT PCR NOT DETECTED NOT DETECTED NARRATIVE -1 This test was performed using isothermal MARTA for the qualitative detection of SARS-CoV-2 nucleic acid. INFLUENZA A AND B, PCR Result Value Ref Range INFLUENZA A POSITIVE (A) NEGATIVE INFLUENZA B NEGATIVE NEGATIVE Radiographic Imaging XR CHEST PA 1 VIEW Final Result IMPRESSION: Low lung volumes, no acute disease. Procedures: Procedures Moderate Sedation Procedure: No ED Summary/MDM Take patient test positive for influenza. Chest x-ray shows no pneumonia. I will place her on an inhaler at this time as she was doing better after the breathing treatment. Have her follow up with the primary provider. Return if any worsening symptoms. Clinical Impression: 1. Influenza A No follow-ups on file. New Prescriptions ALBUTEROL 108 (90 BASE) MCG/ACT AERO SOLN INHALER Inhale 2 puffs every 4 hours as needed. GUAIFENESIN-DEXTROMETHORPHAN 100-10 MG/5ML SYRUP Take 5-10 mL by mouth every 4 hours as needed for Cough. Discontinued Medications No medications on file An After Visit Summary was printed and given to the patient with above information. . Temo Martinez MD 11/04/[address] Martinez at [facility] side. documented in this encounter [facility] 11-04-2024 Physician Emergen cy department Note Emergency Department Report [facility] EMERGENCY DEPARTMENT Service Date:.11/04/24 PCP: Ana Quezada Chief Complaint: Chief Complaint Patient presents with Cough Patient reports dry cough, body aches, and dry heaving Nausea HPI Ryanne Retana is a 69 y.o. female presents to the ED with chief complaint of cough congestion and dry heaving when coughing real hard. Patient states she has been sick for the past 3 days. There has been no shaking chills but she was felt hot. She states she has felt chilled though. She complains of fatigue and nausea. She denies constipation or diarrhea. She states she was had decreased oral intake and food just does not taste good. She does not smoke. She denies hemoptysis. She denies any travel Review of Systems: Review of Systems Seven systems have been reviewed and are negative unless listed specifically as positive in the HPI Past Medical History: Past Medical History: Diagnosis Date Hypothyroidism Past Surgical History: Past Surgical History: Procedure Laterality Date CYSTECTOMY 2015 CHOLECYSTECTOMY 2006 HYSTERECTOMY Allergies: Allergies Allergen Reactions Latex Medications: Patient's Medications New Prescriptions ALBUTEROL 108 (90 BASE) MCG/ACT AERO SOLN INHALER Inhale 2 puffs every 4 hours as needed. GUAIFENESIN-DEXTROMETHORPHAN 100-10 MG/5ML SYRUP Take 5-10 mL by mouth every 4 hours as needed for Cough. Previous Medications CETIRIZINE HCL (ZYRTEC ALLERGY PO) Take by mouth After meals as needed. LEVOTHYROXINE 50 MCG TABLET Take 1 tablet by mouth every morning before breakfast. PANTOPRAZOLE [address] TABLET DR Take 1 tablet by mouth as needed for Other. Modified Medications No medications on file Discontinued Medications No medications on file Family History: Family History Problem Relation Age of Onset Cancer- Other Mother throat Breast Cancer Mother Lung Cancer Father Cancer- Other Father brain, stomach Social History: Social History Socioeconomic History Marital status: Spouse name: Not on file Number of children: Not on file Years of education: Not on file Highest education level: Not on file Occupational History Not on file Tobacco Use Smoking status: Never Smokeless tobacco: Never Vaping Use Vaping status: Never Used Substance and Sexual Activity Alcohol use: Never Drug use: Never Sexual activity: Yes Partners: Male Other Topics Concern Not on file Social History Narrative Not on file Social Drivers of Health Financial Resource Strain: Not on file Food Insecurity: Not on file Transportation Needs: Not on file Physical Activity: Not on file Stress: Not on file Social Connections: Not on file Personal Safety: Not on file Housing Stability: Not on file Physical Exam: Physical Exam General: Well-developed well-nourished HENT: Head is atraumatic. Face is symmetric. Mucous membranes are hydrated Eyes: Pupils are equal Skin: Warm and dry no rash Abdomen: Soft. No distention guarding or rebound Respiratory: Clear. No rhonchi. Coughing frequently Heart: Heart tones are regular Neurologic: Awake, alert, oriented, answering questions appropriately. Moving all extremities well Lymphatic: No anterior-posterior cervical lymphadenopathy Musculoskeletal: No trauma no fracture Psychiatric: Cooperative with the examiner Vital Signs During ED Visit Patient Vitals for the past 24 hrs: BP Temp Temp src Pulse SpO2 Height 11/04/24 1337 -- -- -- -- -- 1.676 m (5' 6 ) 11/04/24 1336 163/75 99.6 F (37.6 C) Oral 75 96 % -- Orders/Results: Results for orders placed or performed during the hospital encounter of 11/04/24 [facility] 1 - NASOPHARYNGEAL Specimen: NASOPHARYNGEAL; Fluid/Swab Result Value Ref Range SARS COV 2 RNA, QL REAL TIME RT PCR NOT DETECTED NOT DETECTED NARRATIVE -1 This test was performed using isothermal MARTA for the qualitative detection of SARS-CoV-2 nucleic acid. INFLUENZA A AND B, PCR Result Value Ref Range INFLUENZA A POSITIVE (A) NEGATIVE INFLUENZA B NEGATIVE NEGATIVE Radiographic Imaging XR CHEST PA 1 VIEW Final Result IMPRESSION: Low lung volumes, no acute disease. Procedures: Procedures Moderate Sedation Procedure: No ED Summary/MDM Take patient test positive for influenza. Chest x-ray shows no pneumonia. I will place her on an inhaler at this time as she was doing better after the breathing treatment. Have her follow up with the primary provider. Return if any worsening symptoms. Clinical Impression: 1. Influenza A No follow-ups on file. New Prescriptions ALBUTEROL 108 (90 BASE) MCG/ACT AERO SOLN INHALER Inhale 2 puffs every 4 hours as needed. GUAIFENESIN-DEXTROMETHORPHAN 100-10 MG/5ML SYRUP Take 5-10 mL by mouth every 4 hours as needed for Cough. Discontinued Medications No medications on file An After Visit Summary was printed and given to the patient with above information. . Temo Martinez MD 11/04/24 6245 [facility] 11-04-2024 Emergency departm ent Note Dr. Martinez at [facility]. [facility] 10-14-2024 History of Presen t illness Narrative Nurse Note: Review of Systems Constitutional: Positive for appetite change (decreased appetite), fatigue and unexpected weight change (gaining). Negative for diaphoresis. HENT: Negative for trouble swallowing and voice change. Eyes: Negative for pain. Respiratory: Positive for shortness of breath (with minimal exertion). Negative for cough. Cardiovascular: Negative for chest pain, palpitations and leg swelling. Gastrointestinal: Negative for constipation and diarrhea. Endocrine: Negative for cold intolerance and heat intolerance. Musculoskeletal: Negative for neck pain. Neurological: Negative for tremors. Psychiatric/Behavioral: Positive for sleep disturbance (hard to stay asleep). The patient is not nervous/anxious. Nursing Assessment: Physical Exam Subjective History of Present Illness Hypothyroidism: This is her second visit to the office. Patient states she was diagnosed with hypothyroidism in August of 2022. She brought lab work with her today demonstrating in August of 2022 TSH = 6.38 with total T4 = 6.4 (assay normal 4.8-13.9). She states that she has a diagnosis of hypothyroidism in approximately 2019 and was started on levothyroxine 100 mcg daily though only stayed on this for about 1 month due to accelerated hair loss and it did not work well . Patient was unable to put into words exactly what she means by it was not working well. States she was titrated off levothyroxine in the stepwise fashion though was only on smaller doses for about a week at a time. Her main complaints today are fatigue, waking up feeling fatigued, depression, weight gain. She was had a total hysterectomy in 1981 and was on HRT for some time though she self discontinued. States that she does occasionally snore. She is asking today about weight loss medication. After her first visit we had her obtain lab work which demonstrated elevated TSH of 8.79 with low free T4 of 0.78. Negative TPO antibody, negative thyroglobulin antibody She was then started on levothyroxine 50 mcg daily in July of 2024. At follow up in September 2024 taking levothyroxine 50 mcg daily TSH = 3.33. She notes that none of her subjective symptoms have improved. Still complains of significant fatigue, depression, weight gain. She was again asking for weight loss medication today. Objective Review of Systems Nurse Note: Review of Systems Constitutional: Positive for appetite change (decreased appetite), fatigue and unexpected weight change (gaining). Negative for diaphoresis. HENT: Negative for trouble swallowing and voice change. Eyes: Negative for pain. Respiratory: Positive for shortness of breath (with minimal exertion). Negative for cough. Cardiovascular: Negative for chest pain, palpitations and leg swelling. Gastrointestinal: Negative for constipation and diarrhea. Endocrine: Negative for cold intolerance and heat intolerance. Musculoskeletal: Negative for neck pain. Neurological: Negative for tremors. Psychiatric/Behavioral: Positive for sleep disturbance (hard to stay asleep). The patient is not nervous/anxious. Nursing Assessment: Physical Exam Vitals: Blood pressure 146/76, pulse 90, resp. rate 16, height 1.689 m (5' 6.5 ), weight 126.6 kg (279 lb), SpO2 96%. Physical Exam Vitals and nursing note reviewed. Constitutional: General: She is not in acute distress. Appearance: She is not diaphoretic. HENT: Head: Normocephalic. Pulmonary: Effort: Pulmonary effort is normal. Neurological: Mental Status: She is alert and oriented to person, place, and time. Neurological Exam Mental Status Alert. Oriented to person, place, and time. Assessment and Plan Hypothyroidism: . Her TSH is at target without any subjective improvement in her symptoms. We have recommended continuing levothyroxine 50 mcg daily. We will see her back in 6 months with labs prior. Obesity: Patient states she does drink soda pop and does eat fast food. We again discussed eliminating sugary drinks. We do not manage weight loss medications here. Offered referral to weight management program though she declines at this time. We have asked her to please follow up with her PCP so that she can discuss her depression and fatigue. May need sleep evaluation to rule out sleep apnea. documented in this encounter [facility] 08-01-2024 History of Presen t illness Narrative Nurse Note: Review of Systems All other systems reviewed and are negative. Nursing Assessment: Physical Exam Ryanne Retana is a 69 y.o. female Pt is here for cyst / mass of middle of back, and right bra strap area Has had for years first occurrence? No grown in size? Yes one in middle of back denies current drainage. I&D? Yes complains of pain when rubbed. Rates 9 denies chills/fever. denies Nausea/Vomiting. denies Constipation/Diarrhea Images from the original note were not included. Chief Complaint: Chief Complaint Patient presents with New Patient Cyst HPI: Ms. Retana is a 69-year-old female who presents to my clinic to discuss multiple lumps on her back and specifically her right scapular area as it interacts with her breast. She has a history of multiple inclusion cyst and she has had these drained by her primary care physician several times. The 1 in her central upper back has recently been drained spontaneously and she was treated it with warm compresses. It was no longer causing her any significant pain. She was now noticed a lump on her right posterior scapular area which she feels a pressure. It was not particularly painful. She has previously had a negative experiences with office based drainage procedures and would like a 2nd evaluation to possibly discuss definitive treatment. She denies any nausea vomiting fevers chills shortness of breath. She was not in any active pain at rest but there was a mild tenderness with direct pressure Past Medical History: Diagnosis Date Hypothyroidism Past Surgical History: Procedure Laterality Date CYSTECTOMY 2015 CHOLECYSTECTOMY 2006 HYSTERECTOMY Social History Social History Socioeconomic History Marital status: Spouse name: Not on file Number of children: Not on file Years of education: Not on file Highest education level: Not on file Occupational History Not on file Tobacco Use Smoking status: Never Smokeless tobacco: Never Vaping Use Vaping status: Never Used Substance and Sexual Activity Alcohol use: Never Drug use: Never Sexual activity: Yes Partners: Male Other Topics Concern Not on file Social History Narrative Not on file Social Determinants of Health Financial Resource Strain: Not on file Food Insecurity: Not on file Transportation Needs: Not on file Physical Activity: Not on file Stress: Not on file Social Connections: Not on file Intimate Partner Violence: Not on file Housing Stability: Not on file Family History Problem Relation Age of Onset Cancer- Other Mother throat Breast Cancer Mother Lung Cancer Father Cancer- Other Father brain, stomach Medications: Current Outpatient Medications Medication Sig Dispense Refill Cetirizine HCl (ZYRTEC ALLERGY PO) Take by mouth After meals as needed. Levothyroxine 50 MCG tablet Take 1 tablet by mouth every morning before breakfast. 30 tablet 2 Pantop[address] tablet DR Take 1 tablet by mouth as needed for Other. Cefdinir (OMNICEF) 300 MG capsule TAKE 2 CAPSULES BY MOUTH ONCE DAILY FOR 10 DAYS (Patient not taking: Reported on 08/01/2024) Doxycycline monohydrate 100 MG capsule take 1 capsule by mouth twice daily for 10 days (Patient not taking: Reported on 08/01/2024) No current facility-administered medications for this visit. Allergies: Latex Review of Systems: Per HPI A detailed 14 point review of systems was discussed with the patient and was negative unless otherwise stated above Physical Exam Vital Signs: Pulse 74 Ht 1.689 m (5' 6.5 ) Wt 126.2 kg (278 lb 3.2 oz) SpO2 98% BMI 44.23 kg/m Smoking Status Never General: Well-developed, well-nourished. Alert and oriented to person, place and time. No acute distress HEENT: Atraumatic, normocephalic, extra ocular muscles intact. No scleral icterus. Neck: Supple Heart: Regular rate and rhythm no murmurs Lungs: Equal chest rise bilaterally without recruitment of accessory muscles. Abdomen: Soft, non-tender, non-distended. No rebound, guarding, or peritoneal signs. Extremities: Non-tender, no edema. In the central back there is a mildly erythematous but appearing healing central mid spine lesion without any active expression. There is a lump on her right posterior scapular area that does not have any skin induration or erythema suggestive of an abscess but it does have a nodularity slightly deep to the skin. It was mildly tender with aggressive palpation. It does appear almost as if there is a previous sinus tract or where this has been drained in the past Laboratory Data: Lab Results Component Value Date WBC 5.4 10/15/2021 HGB 16.4 (H) 10/15/2021 HCT 47.8 10/15/2021 PLATELET 239 10/15/2021 MCV 91.1 10/15/2021 Lab Results Component Value Date SODIUM 134 (L) 10/15/2021 POTASSIUM 4.1 10/15/2021 CHLORIDE 97 (L) 10/15/2021 CO2 25 10/15/2021 BUN 15 10/15/2021 CREATSERUM 0.94 10/15/2021 GLUCOSE 118 (H) 10/15/2021 Lab Results Component Value Date ALT 65 (H) 10/15/2021 AST 57 (H) 10/15/2021 ALKPHOS 55 10/15/2021 BILITOTAL 0.9 10/15/2021 Diagnostic Imaging: None Impression/Plan: 69-year-old female presenting to my clinic to discuss the possibility of management of 2 subcutaneous nodules of unclear etiology. I explained to her that although the only definitive way to prove this would be a surgical excision I explained to her that it was very highly likely that these are inclusion cysts or what are commonly known as sebaceous cyst. I explained to her that it drainage and antibiotics are only a temporary management and the only way to definitively treat these is a complete excision of the cystic capsule in general. I explained that this could be done in the office which she has had a negative experience with or in the operating room under some light anesthesia. I explained this is a very simple procedure and I will be happy to perform this for the midline back lesion as well as the right subscapular lesion at the same time I explained in detail the procedure and she informed me that she was unsure if she wishes to proceed forward at this time. She stated that she was unsure how much the [id number] cost would be and as money is tight at this point of the year she would like to follow up with me in September. I think that it was very reasonable and explained that should she have any worsening symptoms or signs of infection that she can call and be seen sooner. She will follow up with me in September Miladys Wright MD General Surgery [place] [id number] Office - [phone] Fax - [phone] documented in this encounter [facility] 07-15-2024 History of Presen t illness Narrative Nurse Note: Review of Systems Constitutional: Positive for diaphoresis (hotflashes on and off) and unexpected weight change (gaining). Negative for fatigue. HENT: Negative for trouble swallowing and voice change. Eyes: Negative for pain. Respiratory: Negative for cough and shortness of breath. Cardiovascular: Negative for chest pain, palpitations and leg swelling. Gastrointestinal: Negative for constipation and diarrhea. Endocrine: Negative for cold intolerance and heat intolerance. Musculoskeletal: Negative for neck pain. Neurological: Negative for tremors. Psychiatric/Behavioral: Negative for sleep disturbance. The patient is not nervous/anxious. Nursing Assessment: Physical Exam Subjective History of Present Illness Hypothyroidism: This is her first visit to the office. She was referred by her PCP, I do not receive any referral information prior to the visit. Patient states she was diagnosed with hypothyroidism in August of 2022. She brought lab work with her today demonstrating in August of 2022 TSH = 6.38 with total T4 = 6.4 (assay normal 4.8-13.9). She states that she has a diagnosis of hypothyroidism in approximately 2019 and was started on levothyroxine 100 mcg daily though only stayed on this for about 1 month due to accelerated hair loss and it did not work well . Patient was unable to put into words exactly what she means by it was not working well. States she was titrated off levothyroxine in the stepwise fashion though was only on smaller doses for about a week at a time. Her main complaints today are fatigue, waking up feeling fatigued, depression, weight gain. She was had a total hysterectomy in 1981 and was on HRT for some time though she self discontinued. States that she does occasionally snore. She is asking today about weight loss medication. Objective Review of Systems Nurse Note: Review of Systems Constitutional: Positive for diaphoresis (hotflashes on and off) and unexpected weight change (gaining). Negative for fatigue. HENT: Negative for trouble swallowing and voice change. Eyes: Negative for pain. Respiratory: Negative for cough and shortness of breath. Cardiovascular: Negative for chest pain, palpitations and leg swelling. Gastrointestinal: Negative for constipation and diarrhea. Endocrine: Negative for cold intolerance and heat intolerance. Musculoskeletal: Negative for neck pain. Neurological: Negative for tremors. Psychiatric/Behavioral: Negative for sleep disturbance. The patient is not nervous/anxious. Nursing Assessment: Physical Exam Vitals: Blood pressure 140/86, pulse 63, resp. rate 16, height 1.689 m (5' 6.5 ), weight 127 kg (280 lb), SpO2 96%. Physical Exam Vitals and nursing note reviewed. Constitutional: General: She is not in acute distress. Appearance: She is not diaphoretic. HENT: Head: Normocephalic. Neck: Vascular: No carotid bruit. Comments: Thyroid palpates as nontender, nonenlarged, no palpable nodules. Cardiovascular: Rate and Rhythm: Normal rate and regular rhythm. Heart sounds: Normal heart sounds. Pulmonary: Effort: Pulmonary effort is normal. Breath sounds: Normal breath sounds. Skin: General: Skin is warm and dry. Neurological: Mental Status: She is alert and oriented to person, place, and time. Neurological Exam Mental Status Alert. Oriented to person, place, and time. Assessment and Plan Hypothyroidism: In August of 2022 patient had subclinical hypothyroidism with elevated TSH and normal total T4. Unfortunately I do not have any other data in which to review. We will have patient get TSH level today as she was not taking any biotin or multivitamin for a couple of months. We will base treatment decision based on TSH level today. She thinks she would feel more comfortable if we started with low-dose levothyroxine and worked upward as needed versus starting with higher dose levothyroxine (if thyroid hormone is even needed). Obesity: Patient states she does drink soda pop and does eat fast food. We discussed minimizing these and eliminating sugary drinks. We do not manage weight loss medications here. If she is euthyroid we will refer to weight management program. May benefit from sleep testing to rule out KUMAR given history of snoring, obesity documented in this encounter [facility] 10-15-2021 Emergency departm ent Note Emergency Department Report [facility] EMERGENCY DEPARTMENT Service Date:.10/15/21 PCP: Ana Quezada Chief Complaint: Chief Complaint Patient presents with Fatigue Pt c/o symptoms x2 weeks Vomiting Cough HPI Ryanne Retana is a 66 y.o. female presents to the ED with chief complaint of Cough and congestion nausea and vomiting. Patient states she has been sick for more than 10 days with fatigue, nausea, fever, diarrhea, productive cough. She states she called her doctor and was placed on antibiotic and steroids. She denies any loss of taste or smell. She has not been tested for Covid. She has not been immunized for Covid. She denies any travel history. She denies any recent weight loss or weight gain. She has been urinating. She denies frequency, urgency. She denies melena or hematochezia. She denies headache. She does complain of fatigue Review of Systems: Review of Systems Review of Systems Constitutional: Positive for chills, fatigue, malaise Skin: Negative for rash, bruising, itching. HENT: Negative for sore throat, earache. Positive for congestion . Negative for loss of taste or smell Eyes: negative Cardiovascular: negative for chest pain or palpitations Gastrointestinal: positive for diarrhea, nausea Respiratory: positive for cough with phlegm production Genitourinary: negative for frequency, dysuria Musculoskeletal: positive for body aches Neurological: negative for headache, syncope Past Medical History: Past Medical History: Diagnosis Date Hypothyroidism Past Surgical History: No past surgical history on file. Allergies: No Known Allergies Medications: Patient's Medications New Prescriptions ALBUTEROL 108 (90 BASE) MCG/ACT AERO SOLN INHALER Inhale 2 puffs every 4 hours as needed for Shortness of Breath, Cough or Wheezing. DOXYCYCLINE MONOHYDRATE 100 MG CAPSULE Take 1 capsule by mouth every 12 hours for 10 days. Previous Medications No medications on file Modified Medications No medications on file Discontinued Medications No medications on file Family History: History reviewed. No pertinent family history. Social History: Social History Socioeconomic History Marital status: Spouse name: Not on file Number of children: Not on file Years of education: Not on file Highest education level: Not on file Occupational History Not on file Tobacco Use Smoking status: Never Smoker Smokeless tobacco: Never Used Substance and Sexual Activity Alcohol use: Not Currently Drug use: Not Currently Sexual activity: Not on file Other Topics Concern Not on file Social History Narrative Not on file Social Determinants of Health Financial Resource Strain: Not on file Food Insecurity: Not on file Transportation Needs: Not on file Physical Activity: Not on file Stress: Not on file Social Connections: Not on file Intimate Partner Violence: Not on file Housing Stability: Not on file Physical Exam: Physical Exam General: well-nourished well-hydrated HENT: head is atraumatic. Scalp is nontender. Face is symmetric. Mucous membranes are hydrated. Nose was clear rhinorrhea. Tympanic membranes are clear Eyes: pupils are equal. Sclerae anicteric Skin: warm and dry. No rash. No petechiae Abdomen: soft. Obese. No distention, guarding, rebound Respiratory: clear. No wheezing. No Rales. No rhonchi. There is no subcostal retractions. She is coughing occasionally Heart: heart tones are regular. Capillary refill is brisk. Nailbeds are pink. No dependent or pitting edema Neurologic: awake, alert, oriented 3. Moving all extremities well Lymphatic: no lymphedema or lymphadenopathy Musculoskeletal: Negative Homans sign. No palpable cords Psychiatric: cooperative and alert with examiner Vital Signs During ED Visit Patient Vitals for the past 24 hrs: BP Temp Temp src Pulse Resp SpO2 Height Weight 10/15/21 2158 134/58 98.8 F (37.1 C) Oral 88 20 95 % 1.676 m (5' 6 ) 124.7 kg (275 lb) Orders/Results: Results for orders placed or performed during the hospital encounter of 10/15/21 [facility] LAB 1 - NASOPHARYNGEAL Specimen: NASOPHARYNGEAL; Fluid/Swab Result Value Ref Range SARS COV 2 RNA, QL REAL TIME RT PCR DETECTED (A) NOT DETECTED NARRATIVE -1 This test was performed using isothermal [employer] and has been approved as Emergency Use Authorization (EUA) for the qualitative detection [id number] nucleic acid. CBC, EDIF, PLATELET Result Value Ref Range WBC (WHITE BLOOD COUNT) 5.4 3.6 - 11.0 10*3/uL RBC 5.24 4.0 - 5.4 10*6/uL HEMOGLOBIN (HGB) 16.4 (H) 12.0 - 16.0 G/DL HEMATOCRIT (HCT) 47.8 36.0 - 48.0 % MEAN CELL VOLUME 91.1 80.0 - 100.0 FL Mean Cell HGB 31.3 26.0 - 35.0 PG MEAN CELL HGB CONCENTRATION 34.3 27.0 - 37.0 G/DL RBC DISTRIBUTION 13.4 11.5 - 14.5 % PLATELET COUNT 239 130.0 - 400.0 10*3/uL MEAN PLATELET VOLUME 7.7 7.4 - 11.0 FL DIFFERENTIAL TYPE PENDING % COMPREHENSIVE METABOLIC PANEL Result Value Ref Range GLUCOSE 118 (H) 70 - 100 MG/DL BUN 15 7 - 20 MG/DL CREATININE SERUM 0.94 0.52 - 1.04 MG/DL SODIUM 134 (L) 136 - 145 MMOL/L POTASSIUM 4.1 3.5 - 5.1 MMOL/L CHLORIDE 97 (L) 98 - 107 MMOL/L CALCIUM 9.1 8.4 - 10.2 MG/DL PROTEIN, TOTAL 7.4 6.3 - 8.2 GM/DL ALBUMIN 3.2 (L) 3.5 - 5.0 G/dl BILIRUBIN, TOTAL 0.9 0.2 - 1.2 MG/DL AST 57 (H) 15 - 41 IU/L ALKALINE PHOSPHATASE 55 38 - 126 IU/L CARBON DIOXIDE (CO2) 25 22 - 30 MMOL/L A/G Ratio 0.8 (L) 1.3 - 2.2 RATIO ALT 65 (H) 14 - 54 IU/L ESTIMATED GFR, NON AMER 64 ml/min/1.73sq.m ESTIMATED GFR, 77 ml/min/1.73sq.m GFR COMMENT Average GFR for 60-69 years old = 85. Radiographic Imaging XR CHEST PA 1 VIEW Final Result IMPRESSION: Mild bilateral lower lung interstitial opacities reflect infectious/inflammatory infiltrates or atelectasis/scarring. Procedures: Procedures Moderate Sedation Procedure: No ED Summary/MDM Patient was tested for Covid. She is Covid positive. Her blood work reveals a white count of 5.4 with an H&H of 16 and 47. Her chemistry panel shows a glucose of 118 with the 15 and cranial 0.94. Chest x-ray does show findings consistent with pneumonia. Patient was on Levaquin from her primary physician and I will switch that to doxycycline and place her on an inhaler as well. She is more than 10 days out and does not therefore meet criteria for antibody infusion She will be discharged home on an inhaler. She is to continue on her steroids. She is been written for Marco A Clinical Impression: 1. COVID No follow-ups on file. New Prescriptions ALBUTEROL 108 (90 BASE) MCG/ACT AERO SOLN INHALER Inhale 2 puffs every 4 hours as needed for Shortness of Breath, Cough or Wheezing. DOXYCYCLINE MONOHYDRATE 100 MG CAPSULE Take 1 capsule by mouth every 12 hours for 10 days. Discontinued Medications No medications on file An After Visit Summary was printed and given to the patient with above information. . Temo Martinez MD 10/15/210 documented in this encounter [facility] Evaluation note Diagnosis COVID- Primary [facility] Diagnosis Hypothyroidism, unspecified type- Primary Class 3 severe obesity due to excess calories with body mass index (BMI) of 40.0 to 44.9 in adult, unspecified whether serious comorbidity present [facility] Diagnosis Inclusion cyst- Primary Sebaceous cyst [facility] Diagnosis Hypothyroidism, unspecified type- Primary Class 3 severe obesity due to excess calories with body mass index (BMI) of 40.0 to 44.9 in adult, unspecified whether serious comorbidity present [facility] Diagnosis Influenza A- Primary Influenza with other respiratory manifestations [facility] Diagnosis Upper respiratory tract infection, unspecified type- Primary Influenza A Influenza with other respiratory manifestations Bronchitis Bronchitis, not specified as acute or chronic [facility]* Attachments The following attachments cannot be sent through Care Everywhere. * Coronavirus Disease (COVID-19): General Info (Maltese) * Coronavirus Disease (COVID-19): Isolation (Maltese) [facility] Attachments The following attachments cannot be sent through Care Everywhere. * Influenza (Maltese) [facility] (n[facility]ative)* Radiology (Emergency) - New Request Specialty Diagnoses / Procedures Referred By Jia enriquez Referred To Contact Procedures ECG Janessa Martinez DO [address] [place] [address] Phone: tel: fax: Referral ID Status Reason Start Date Expiration Date V isits Requested Visits Authorized [id number] New Request 11/08/2024 12/03/2025 1 1 [facility] Summary Purpose Family History No Family History Records FoundNo Family History Records Found Advance Directives No Advanced Directives Records FoundNo Advanced Directives Records Found Additional Source Comments Reason for Visit (unrecogniz ed section and content) Reason Comments Fatigue Pt c/o symptoms x2 w eeks Vomiting Cough Reason Comments New Patient Thyroid Problem Reason Comments New Patient Cyst Reason Comments Thyroid Problem Reason Comments Cough Patient reports dry cough, body aches, and dry heaving Nausea Reason Comments Flu Dx with flu on Tuesd ay, no improvement, unable to tolerate po, note 87% on room air. 2L O2 applied via [place] Specialty Diagnoses / Procedures Referred By Jia enriquez Referred To Contact [facility] Referral ID Status Reason Start Date Expiration Date Visits Re quested Visits Authorized [id number] 1 1 Scheduled Active and Recently Administ ered Medications (unrecognized section and content) Medication Order 10/13/2021 10/14/2021 10/15/2021 albuterol inhaler 4 puff (COMPLETED) 4 puff, Inhalation, ONCE, 1 dose, On Mon10/15/21 at 2315, Wait at least one(1) full minute between inhalations 2323 (Given - Provid er: Louisa Felder RRT) doxycycline hyclate (VIBRAMYCIN) capsule 100 mg (COMPLETED) 100 mg, Oral, ONCE, 1 dose, On Mon10/15/21 at 2315, Avoid antacid and iron administration for 1 hour before and 2 hours after dose 2301 (Given - Provid er: Lynnette Ivan RN) methylPREDNISolone sodium succinate (SOLU-MEDROL) injection 125 mg (COMPLETED) 125 mg, Intravenous, ONCE, 1 dose, On Mon10/15/21 at 2315 2300 (Given - Provid er: Lynnette Ivan RN) ondansetron 4mg/2ml (ZOFRAN) injection 4 mg (COMPLETED) 4 mg, Intravenous, ONCE, 1 dose, On Mon10/15/21 at 2230 2214 (Given - Provid er: Lynnette Ivan RN) sodium chloride 0.9% IV solution 1,000 mL (COMPLETED) 1,000 mL, Intravenous, Administer over 60 Minutes, ONCE, 1 dose, On Mon10/15/21 at 2230 2215 ($$New Bag$$ - Provider: Lynnette Ivan RN)2339 (Stopped - Provider: Lynnette Ivan RN) Scheduled Medication Order 11/02/2024 11/03/2024 11/04/2024 Ipratropium-albuterol (DUONEB) 0.5-2.5 (3) MG/3ML nebulizer solution 9 mL (COMPLETED) 9 mL, Nebulization, ONCE, 1 dose, On Mon11/04/24 at 1400 1405 (Given - Provid er: Johana Santoro, [employer]TER OPERATOR) Scheduled Medication Order 11/06/2024 11/07/2024 11/08/2024 benzonatate (TESSALON) capsule 200 mg 200 mg, Oral, ONCE, 1 dose, On Mon11/08/24 at 0045 0123 (Not Given - Pr ovider: Gracie Norris RN - Reason: Patient/family refused) guaiFENesin-dextromethorphan (ROBITUSSIN DM) 100-10 MG/5ML syrup 10 mL (COMPLETED) 10 mL, Oral, ONCE, 1 dose, On Mon11/08/24 at 0045 0122 (Given - Provid er: Gracie Norris, EDGAR) oxymetazoline (AFRIN) 0.05 % nasal spray 2 spray (COMPLETED) 2 spray, Each Nostril, ONCE, 1 dose, On Mon11/08/24 at 0045, Do not use for more than 3 days. 0122 (Given - Provid er: Gracie Norris RN) Sodium chloride 0.9% IV solution 500 mL (COMPLETED) 500 mL, Intravenous, ONCE, 1 dose, On Mon11/08/24 at 0115 0123 ($$New Bag$$ - Provider: Gracie Norris, RN)0202 (Stopped - Provider: Gracie Norris, RN) Continuous Medication Order 11/06/2024 11/07/2024 11/08/2024 Sodium chloride 0.9% IV solution Intravenous, at 75 mL/hr, CONTINUOUS, Starting on Mon11/08/24 at 0045, Until Mon11/08/24 at 0501 0124 (Rate/Dose Johnston ge - Provider: Gracie Norris, RN)0242 (Stopped - Provider: Gracie Norris, RN) Care Teams (unrecognized sec tion and content) Medical Records Secretary Relationship Specialty Start Date End Date Ana Quezada MD [address] [place] [address] PCP - General Family Medicine 10/15/21 Medical Records Secretary Relationship Specialty Start Date End Date Ana Quezada MD [address] [place] [phone] PCP - General Family Medicine 10/15/21 Medical Records Secretary Relationship Specialty Start Date End Date Ana Quezada MD [address] [place] [phone] PCP - General Family Medicine 10/15/21 Medical Records Secretary Relationship Specialty Start Date End Date Ana Quezada MD [address] [place] [phone] PCP - General Family Medicine 10/15/21 Medical Records Secretary Relationship Specialty Start Date End Date Ana Quezada MD [address] [place] [phone] PCP - General Family Medicine 10/15/21 Medical Records Secretary Relationship Specialty Start Date End Date Ana Quezada MD [address] [place] [phone] PCP - General Family Medicine 10/15/21 INFORMATION SOURCE (unrecogn ized section and content) DATE CREATED AUTHOR 09/08/2022 [facility] DATE CREATED AUTHOR AUTHOR'Sabine VASQUEZ 11/13/2024 [facility] Leonardo maynard FOR RECORDS PERTAINING TO PATIENTS WHO ARE OR HAVE BEEN ENROLLED IN A CHEMICAL DEPENDENCY/SUBSTANCEABUSE PROGRAM, SOME INFORMATION MAY BE OMITTED. This clinical summary was aggregated from multiple sources. Caution should be exercised in using it in the provision of clinical care. This summary normalizes information from multiple sources, and as a consequence, information in this document may materially change the coding, format and clinical context of patient data. In addition, data may be omitted in some cases. CLINICAL DECISIONS SHOULD BE BASED ON THE PRIMARY CLINICAL RECORDS. [employer] provides no warranty or guarantee of the accuracy or completeness of information in this document.
[2025-02-10 09:23] LABS: Free T3 2.41 pg/mL (2.18-3.98); Thyroid Stimulating Hormone 4.708 uIU/mL (0.358-3.740)
== END 2025-02-10 08:16 | disposition home or self-care (01) ==
LOC: LAB 08:20
PROVIDERS: PCP Family Medicine; Visit Provider Family Medicine
DX: E03.9 Hypothyroidism, unspecified (principal)
CPT/HCPCS: 36415; 84436; 84443; 84481

== ENCOUNTER 2025-04-11 14:07 | Outpatient (OUT) | payer MEDICARE, SELFPAY ==
[2025-04-11 14:57] LABS: Free T3 1.89 pg/mL (2.18-3.98); Thyroid Stimulating Hormone 2.412 uIU/mL (0.358-3.740)
== END 2025-04-11 14:08 | disposition home or self-care (01) ==
LOC: LAB 14:11
PROVIDERS: PCP Family Medicine; Visit Provider Family Medicine
DX: E03.9 Hypothyroidism, unspecified (principal)
CPT/HCPCS: 36415; 84436; 84443; 84481

== ENCOUNTER 2025-09-03 12:23 | Outpatient (OUT) | payer MEDICARE, SELFPAY ==
--- OUTSIDE RECORDS SUMMARY | 2025-09-01 10:00 | XMS_ITS ---
Author Organization [facility] [place] in [place] Address [address] [place] [address] Care Team Providers Care Bed Bug Exterminator Name Role Phone Cuong Quezada Primary Care Provider Allergies Allergen (clinical drug ingredient) Drug/Non Drug Allergy documented on EMR Reaction Allergy Type Onset Date Status Latex Latex (uncoded) hives Allergy ActiveTape adhesive (uncoded)hivesAllergyActive REASON FOR VISIT check up Medications Medication SIG (Take, Route, Frequency, Duration) Notes Start Date End Date Status Adipex-P 37.5 MG 1 tablet before breakfast Orall y Once a day 5ActiveLevothyroxine Sodium 125 MCG1/2 tablet in the morning on an empty stomach Orally Once a day; Duration: 30 days5ActiveLiothyronine Sodium 5 MCG1 tablet on an empty stomach Orally Once a day; Duration: 30 days 5Active Social History Tobacco Use: Social History Observation Description Date Details (start date - stop date) Never Smoker NA - NA Tobacco Use/Smoking Question Answer Notes Patient is a nonsmoker AUDIT-C (Standard) Question Answer Notes Did you have a drink containing alcohol in the p ast year? No Dxmcvg0BlopazglqamypoTajibgqi Vital Signs Weight 279.4 lbs 09/01/2025 Height 66.5 in 09/01/2025 Blood pressure systolic 132 mm Hg 09/01/20 25 Blood pressure diastolic 82 mm Hg 025 BMI 44.42 kg/m2 09/01/2025 Encounters Encounter Location Date Provider Diagnosis [facility] [address] [place] [address] 09/01/2025 Cuong Quezada Obesity E66.9 and Hypothyroidism E03.9 Assessments Encounter Date Diagnosis (ICD Code) Assessment Notes Treatment Notes Treatment Clinical Notes Section Notes 09/01/2025 Obesity (ICD-10 - E66.9) doidngt send adipex - tere hold till after first of the year09/01/2025 Hypothyroidism (ICD-10 - E03.9) Plan Of Treatment Medication Medication Name Sig Start Date Stop Date Notes Adipex-P 37.5 MG 1 tablet before breakfast Orally Once a day 09/01/2025 Treatment Notes Assessment Notes Obesity doidngt send adipex - tere hold till after first of the year Pending Test Test Name Order Date CBC AUTO DIFF 09/01/2025 MAGNESIUM 09/01/2025 PHOSPHORUS 09/01/2025 PROF 14(COMP METB) 09/01/2025 THYROID PROFILE WITH TSH 09/01/2025 Progress Notes * Andria RETANA ADOB: [birth year] (70 yo F)Acc No.[id number]:09/01/2025 Progress Note Patient: Andria LEVIN A :?Asad Quezada ([facility]), MDDOB:1955???Age: 70 Y???Sex:FemaleDate:09/01/2025Phone:[phone]:[address]Lzifw In:02:32 PM ESTCheck Out:03:11 PM EST Subjective: * Chief Complaints: * C heck up * HPI: ???General:? disucsd weight loss - needs meds - doing well with diet and exercise. * ROS: ???EENT:?hearing changes?denies.?visual changes?denies. non-healing mouth sores?denies.?swollen glands or neck lumps?denies.?hoarseness?denies.?sore throat?denies.?difficulty swallowing?denies.?nose bleeds?denies.?nasal congestion?denies.?ear ache?denies.?ear discharge denies.?ringing in ears?denies.?light sensitivity?denies.?eye pain?denies.?blurring?denies.?eye irritation?denies.?double vision?denies. vision loss?denies.?General/Constitutional:?Sweats:?Denies.?Fatigue?denies.?Sleep proble ms?denies.?Anorexia?denies.?Malaise?denies.?Weight loss?denies. Fatigue or Weakness?denies.?Fever or Chills?denies.?Cardiovascular:?Shortness of Breath w/lying flat?denies.?Lightheadedne ss/dizziness?denies.?Chest tightness/ heavy pressure?denies.?Swelling of legs, a nkles, or feet?denies.?Waking up with shortness of breath?denies.?Chest pain&#16 0;denies.?Palpitations?denies.?Weight gain?denies.?Respiratory:?Chronic or frequent cough?denies.?Coughing up blood&#1 60;denies.?Difficulty breathing?denies.?Productive cough?denies.?Snoring&#1 60;denies.?Shortness of breath that awakens from sleep (PND)?denies.?Chest pain? denies.?Sputum production?denies.?Wheezing?denies.?Musculoskeletal:?Joint pain?denies.?Joint Fluid?denies.?Backpain?denies.?Knee pain?denies.?Neck pain?denies.?Joint Stiffness?denies.?Muscle cramps?denies.?Weakness of muscles?denies.?Arthritis?denies.?Muscle aches?denies.?Pain in shoulder(s)?denies.?Swollen joints?denies.? * Active Problem List E55.9 Vitamin D deficiency Modified On:08/21/2023W/U Status:xrlezvuchK30.221Furuncle of abdominal wall Modified On:08/10/2023W/U Status:uskiurynmK95.9Hypothyroidism Modified On:08/10/2023/U Status:stlcszlvvO25.2Seasonal allergic rhinitis Modified On:08/10/2023U Status:lpdvpdfssR95.9Obesity Modified On:08/10/2023U Status:cfbpkwqkzZ70.9Anxiety Modified On:08/10/2023U Status:ytzaqefrvK31.70Gastritis Modified On:08/10/2023U Status:inbjtfginN76.9Hiatal hernia Modified On:08/10/2023U Status:ttvaqdrrkC80.3Sebaceous cyst Modified On:12/13/2024U Status:confirmed * Medical History: * Surgical History: t otal hysterectomy Gall Bladder Removal * Hospitalization/Major Diagno stic Procedure: N o Hospitalization History. * Family History: F ather: , lung cancer, Brain Cancer, stomach cancer, aneurysm, diagnosed with Cancer.?Mother: , breast cancer, acute myocardial infarction, diagnosed with Cancer, Heart Disease. B rother(s): alive, hypertension, diagnosed with Hypertension. S on(s): alive. D linda(s): alive. 1 brother(s) . 1 son(s) , 1 daughter(s) - healthy. . * Social History: ???Tobacco Use:?Tobacco Use/Smoking?Patient is a?nonsmoker ???Drug/Alcohol:?AUDIT-C (Standard)?Did you have a drink containing alcohol in the past year??No ?Points?0 ?Interpretation?Negative * Medications: T akingLevothyroxine Sodium 125 MCG Tablet 1/2 tablet in the morning on an empty stomach Orally Once a day Liothyronine Sodium 5 MCG Tablet 1 tablet on an empty stomach Orally Once a day Medication List reviewed and reconciled with the patientTaking Levothyroxine Sodium 125 MCG Tablet 1/2 tablet in the morning on an empty stomach Orally Once a day Taking Liothyronine Sodium 5 MCG Tablet 1 tablet on an empty stomach Orally Once a day Medication List reviewed and reconciled with the patient * Allergies: L atex: hives - AllergyTape adhesive: hives - Allergyno[Allergies Verified] Objective: * Vitals: W t:279.4lbs, Ht: 66.5 in, BP:132/82mm Hg, BMI:44.42Index, Ht-cm: 168.91 cm, Wt- k.74 kg. * Examination: ???Physical Exam: ?GENERAL:?well developed, well nourished, in no acute distress.?HEAD:?normocephalic/atraumatic.?EYES:?pupils equal, round and reactive to light, conjunctivae and sclerae normal.?EARS:?no deformity or lesion of external ear, canals and TM appear normal bilaterally, TM's intact, not inflamed with normal light reflex, hearing grossly normal to conversational speech.?NOSE:?no deformity, discharge, inflammation, or lesions. ?MOUTH:?mucous membranes moist, normal oropharynx and posterior pharynx without lesions or exudates, tongue normal, dentition normal.?NECK:?neck supple, no masses or palpable cervical nodes, trachea midline, thyroid without nodules, masses, tenderness, or enlargement.?CHEST:?no chest wall deformity, no chest wall tenderness. ?LUNGS:?normal respiratory effort and clear to auscultation, no wheezes, rales, or rhonchi, good air exchange.?CARDIO:?regular rate and rhythm, normal S1 and S2, nor murmur, rub, or gallop.?PULSES:?normal capillary refill.?ABDOMEN:?soft, non-distended, non-tender, no masses.?MUSCULOSKELETAL:?no deformity or scoliosis noted, normal range of motion, joints normal, no erythema, edema, effusion, or ecchymosis.?EXTREMITY:?no clubbing, cyanosis, edema, or deformity withnormal ROM in both upper and lower bilateral extremities.?NEUROLOGIC:?grossly normal.?SKIN:?no rashes, ulcerations, or suspicious lesions.?LYMPH NODES:?no cervical adenopathy, nodes normal.?MENTAL STATUS:?alert and oriented x3, normal mood and affect.? Assessment: * Assessment: 1.?Obesity - E66.9 (Primary)???2.?Hypothyroidism - E03.9??? Plan: * Treatment: Start Adipex-P Tablet, 37.5 MG, 1 tablet before breakfast, Orally, Once a day, 30.?LAB: CBC AUTO DIFF ?LAB: MAGNESIUM ?LAB: PHOSPHORUS ?LAB: PROF 14(COMP METB) ?LAB: THYROID PROFILE WITH TSH Notes: sarahdncarine send adipex - tere hold till after first of the year?? * Procedure Codes: * Preventive Medicine: ??Screenings/Counseling:?BMI ACTION PLAN?Above Normal BMI Follow-up?Dietary management education, guidance, and counseling * * Sign off status: CompletedVisit Status:?CHK (Check Out) true * Provider: Tio Quezada ([facility])MD Date: 1 11/02/2024 Generated for Printing/Faxing/eTransmitting on:?09/03/2025 12:29 PM EST History and Physical Notes * HPI (History of Present Illness) CategorySub-CategoryDetailNotesCategory NotesGeneraldisucsd weight loss - needs meds - doing well with diet and exercise Examination CategorySub-CategoryDetailNotesCategory NotesPhysical ExamGENERAL:well developed, well nourished, in no acute distressHEAD:normocephalic/atraumatic EYES:pupils equal, round and reactive to light, conjunctivae and sclerae normal EARS:no deformity or lesion of external ear, canals and TM appear normal bilaterally, TM's intact, not inflamed with normal light reflex, hearing grossly normal to conversational speechNOSE:no deformity, discharge, inflammation, or lesionsMOUTH:mucous membranes moist, normal oropharynx and posterior pharynx without lesions or exudates, tonguenormal, dentition normalNECK:neck supple, no masses or palpable cervical nodes, trachea midline, thyroid without nodules, masses, tenderness, or enlargementCHEST:no chest wall deformity, no chest wall tendernessLUNGS:normal respiratory effort and clear to auscultation, no wheezes, rales, or rhonchi, good air exchangeCARDIO:regular rate and rhythm, normal S1 and S2, nor murmur, rub, or gallopPULSES:normal capillary refillABDOMEN:soft, non-distended, non-tender, no massesRECTAL:MUSCULOSKELETAL:no deformity or scoliosis noted, normal range of motion, joints normal, no erythema, edema, effusion, or ecchymosisEXTREMITY:no clubbing, cyanosis, edema, or deformity with normal ROM in both upper and lower bilateral extremitiesNEUROLOGIC:grossly normalSKIN:no rashes, ulcerations, or suspicious lesionsLYMPH NODES:no cervical adenopathy, nodes normalMENTAL STATUS:alert and oriented x3, normal mood and affect
--- OUTSIDE RECORDS SUMMARY | 2025-09-03 12:30 | XMS_ITS | Clinical Summary ---
Author Organization [facility] Address [address] [place] [address] Care Team Providers Care Performance Management Consultant Name Role Phone Unavailable Primary Care Provider Unavailabl e Social History Tobacco UseTypesPacks/DayYears UsedDateSmoking Tobacco: Never Assessed CommentsUnknownSex and Gender InformationValueDate RecordedSex Assigned at Not on fileLegal WytFipueu05/22/2015 4:49 PM EDTGender IdentityNot on fileSexual OrientationNot on file Plan of Treatment Not on file
--- OUTSIDE RECORDS SUMMARY | 2025-09-03 12:30 | XMS_ITS | Patient Health Record ---
Author Organization [facility] in [place] Address [address] [place] [address] Care Team Providers Care Welding Pantograph Operator Name Role Phone PilarCuong Primary Care Provider [phone] Allergies Allergen (clinical drug ingredient) Drug/Non Drug Allergy documented on EMR Reaction Allergy Type Onset Date Status Latex Latex (uncoded) hives Allergy ActiveTape adhesive (uncoded)hivesAllergyActive Results Component Value Reference Range Notes FREE T3 Reviewed date:02/10/2025 09:08:10 PM Interpretation: Performing Lab: Notes/Report: The , Free T3 2.41 2.18-3.98 pg/mL Performing Lab:see noteML - [facility] LBT4 Reviewed date:02/10/2025 09:08:10 PM Interpretation: Performing Lab: Notes/Report: The ,T4 Thyroxine8.604.80-13.90 ug/dLPerforming Lab:see noteML - [facility] LBTSH Reviewed date:02/10/2025 09:08:10 PM Interpretation: Performing Lab: Notes/Report: The ,Thyroid Stimulating Hormone4.7080.358-3.740 uIU/mLPerforming Lab:see noteML - [facility] LBFREE T3 Reviewed date:04/13/2025 08:12:29 PM Interpretation: Performing Lab: Notes/Report: The ,Free T31.892.18-3.98 pg/mLPerforming Lab:see noteML - [facility] LB T4 Reviewed date:04/13/2025 08:12:29 PM Interpretation: Performing Lab: Notes/Report: The ,T4 Thyroxine9.404.80-13.90 ug/dLPerforming Lab:see noteML - [facility] Reviewed date:04/13/2025 08:12:29 PM Interpretation: Performing Lab: Notes/Report: The ,Thyroid Stimulating Hormone2.4120.358-3.740 uIU/mLPerforming Lab:see noteML - The [facility] Reason For Referral No Information Medications Medication SIG (Take, Route, Frequency, Duration) [...] alcohol in the p ast year? No Eyoiqd7QkymxkgiswoxnjGrykvusv Problems Problem Type SNOMED Code ICD Code Onset Dates Problem Status W/U Status Risk Notes Problem Furuncle of abdominal wall (9122 1002) Furuncle of abdominal wall (L02.221) ActiveconfirmedProblemSebaceous cyst (527072949)Sebaceous cyst (L72.3)Active confirmedProblemHypothyroidism (98055139)Hypothyroidism (E03.9)Activeconfirmed ProblemObesity (320887812)Obesity (E66.9)ActiveconfirmedProblemAnxiety (49720150)Anxiety (F41.9)ActiveconfirmedProblemHiatal hernia (68462468)Hiatal hernia (K44.9)ActiveconfirmedProblemVitamin D deficiency (02915715)Vitamin D deficiency (E55.9)ActiveconfirmedProblemGastritis (5237072)Gastritis (K29.70) ActiveconfirmedProblemSeasonal allergic rhinitis (644674666)Seasonal allergic rhinitis (J30.2)Activeconfirmed Vital Signs Blood pressure diastolic 82 mm Hg 09/01/2025 Vrzyvz88.5 in09/01/2025lood pressure mm Hg09/01/20259042Vtsuno682.4 lbs 09/01/2025BMI44.42 kg/m209/01/2025 Encounters Encounter Location Date Provider Diagnosis [facility] [address] [place] [address] 12/13/2024 Cuong Hoy Sebaceous cyst L72.3 [facility] [address] [facility] [place] [place] [address] 05/08/2025 Cuong Hoy Vitamin D deficiency E55.9 ; Hypothyroidism E03.9 and Obesity E66.9 [facility] [address] [place] [address] 09/01/2025 Cuong Hoy Obesity E66.9 and Hypothyroidism E03.9 [facility] [address] [place] [address] 12/04/2024 Cuong Hoy Acute bronchitis, unspecified organism J20.9 [facility] [address] [place] [address] 12/30/2024 Cuong Hoy Sebaceous cyst L72.3 [facility] [address] [place] [address] 02/07/2025 Cuong Hoy Hypothyroidism E03.9 [facility] [address] [place] [address] 02/10/2025 Cuong Hoy [facility] [facility] [place] [place] [address] 02/24/2025[facility] [place] [address]/30/2025[facility] [place] [address]/30/2025[facility] [place] [address]/01/2025[facility]oyHypothy[facility]03.9[facility] [facility] [place] [address]/11/2024 Cuong HoyHypothyroidism E03.9[facility] [facility] [place] [address]/[facility] [facility] [place] [address]/Doug HoyHypothyroidism E03.9 [facility] [facility] [place] [address] 08/06/2025Doug Hoy Assessments Encounter Date Diagnosis (ICD Code) Assessment Notes Treatment Notes Treatment Clinical Notes Section Notes 12/04/2024 Acute bronchitis, unspecified or ganism (ICD-10 - J20.9) Rest and drink more liquids, especially water. You may use a humidifier or vaporizer to help keep the drainage moist. Uizd-ghr-nzlkfzq Nasal Saline may help the stuffy and runny nose. Use Ibuprofen and or Tylenol as needed for fever, chills, body aches or pain. Children 5 years old should not be given faxr-rlw-gambycq cough and cold medications such as guaifenesin and dextromethorphan. If you're over age 5, you may try eqkk-ptq-slmfdzu cold medications such as guaifenesin and dextromethorphan, or multi-symptom cold reliever such as Dayquil to help reduce the symptoms. Antibiotics have been pre scribed. You should take these until completed and follow the directions. Antibiotics can sometimescause upset stomach, and in rare cases, serious allergic reactions or serious gastrointestinal problems. If you start having severe abdominal pain, severe vomiting, or bloody diarrhea, you should be r eevaluated by your physician or urgent care immediately. Follow up with your Primary Care Provider or return to clinic if symptoms do not improve within 3-5 days. If you develop severe symptoms such as shortness of breath, repeated vomiting, coughing up blood, or chest pain you should go to the emergency room or call [address]/12/2024Sebaceous cyst (ICD-10 - L72.3)05/08/2025Vitamin D deficiency (ICD-10 - E55.9)checking on labs05/08/2025Hypothyroidism (ICD-10 - E03.9)checkin on labs12/30/2024Sebaceous cyst (ICD-10 - L72.3)02/07/2025 Hypothyroidism (ICD-10 - E03.9)03/11/2025Hypothyroidism (ICD-10 - E03.9) 04/13/2025Hypothyroidism (ICD-10 - E03.9)07/24/2025Hypothyroidism (ICD-10 - E03.9)09/01/2025Obesity (ICD-10 - E66.9)doidngt send adipex - tere hold till after first of the year09/01/2025Hypothyroidism (ICD-10 - E03.9)05/08/2025 Obesity (ICD-10 - E66.9)working onweight Plan Of Treatment Pending Test Test Name Order Date CMP (COMPLETE METABOLIC PANEL) 3 HEMOGLOBIN A1C (GLYCO) 08/18/2023 IRON, TOTAL 08/18/2023 LIPID PANEL (CHOL/TRIG/HDL/LDL) 08/18/20 23 CBC WITH DIFF (EXP 07/2025) 08/18/2023 VITAMIN D, 25 LEVEL (TOTAL) 08/18/2023 MAMM Mammograms CAD 08/18/2023 T3 FREE, T4 FREE and TSH 08/19/2023 Insulin Level 08/18/2023 STOOL OCCULT BLOOD 08/18/2023 CBC AUTO DIFF 09/01/2025 MAGNESIUM 09/01/2025 PHOSPHORUS 09/01/2025 PROF 14(COMP METB) 09/01/2025 THYROID PROFILE WITH TSH 09/01/2025 THYROID PANEL (T4/TSH/FREE T3) 3 THYROID PANEL (T4/TSH/FREE T3) 5 THYROID PANEL (T4/TSH/FREE T3) 5 THYROID PANEL (T4/TSH/FREE T3) 5 THYROID PANEL (T4/TSH/FREE T3) 5 MM screening mammo BI 05/08/2025 Vitamin D 08/19/2023 Insurance Providers Payer Name Payer Address Payer Phone Subscriber Number Group Number Insured Name Patient Relationship to Insured Coverage Start Date Coverage End Date [employer] ACC[employer] PPO PLUS LOCAL PLAN [address] [place] [address] [id number] Aaron Retana - patient is the insured Medical (General) History Medical History History ICD Code Furuncle of abdominal wall L02.221 Hypothyroidism E03.9 Seasonal allergic rhinitis J30.2 Obesity E66.9 Anxiety F41.9 Gastritis K29.70 Hiatal hernia K44.9 Vitamin D deficiency E55.9 Surgical History Surgery Date(Month/Year) total hysterectomy Gall Bladder Removal
--- OUTSIDE RECORDS SUMMARY | 2025-09-03 12:30 | XMS_ITS | Clinical Summary ---
Author Organization [facility] Address [address] [place] [address] Care Team Providers Care Carriage Dogger Name Role Phone Asad Quezada MD Primary Care Provider [phone] Allergies Active AllergyReactionsCriticalityNoted ShgkNkwhydacFvsbq66/11/2023 Medications MedicationSigDispense QuantityRefillsLast FilledStart DateEnd DateStatus Cetirizine HCl (ZYRTEC ALLERGY PO) Take by mouth After meals as needed.Active Pantoprazole [address] tablet DR Take 1 tablet by mouth as needed for Other.4Active Levothyroxine 50 MCG tablet Indications:Hypothyroidism, unspecified typeTake 1 tablet by mouth every morning before breakfast. 30 tablet 5Active Albuterol 108 (90 Base) MCG/ACT Aero Soln inhaler Inhale 2 puffs every 4 hours as needed. 1 g 5Active guaiFENesin-dextromethorphan 100-10 MG/5ML Syrup Take 10 mL by mouth every 6 hours as needed for Cough or Congestion. 240 mL 5Active fluticasone 50 MCG/ACT Suspension nasal spray 2 sprays per nostril b.i.d. for 7 days. 16 g 5Active Cefdinir (OMNICEF) 300 MG capsule TAKE 2 CAPSULES BY MOUTH ONCE DAILY FOR 10 DAYS5Active Doxycycline monohydrate 100 MG capsule Take 1 capsule by mouth 2 times daily.5Active Liothyronine 5 MCG tablet take 1 tablet by mouth once daily on an empty stomach.Active ujpcyciz-fgyjjjxkv-erktlptnbqigr 3.5-75578-0.1 Suspension instill 1 drop into right eye 4 times daily5Active Active Problems ProblemNoted DateDiagnosed Datebody mass index of 40.0-49.9109/14/2023 Wcwcjgajkbewsv74/04/2024Class 3 severe obesity due to excess calories with body mass index (BMI) of 40.0 to 44.9 in adult07/15/2024 Encounters DateTypeDepartmentCare QlvmNrlwpjdwncu09/02/2025 2:40 PM ESTOffice Visit [facility] [address] [facility] [place], [place] [address] Susu Holbrook, DPM Bilateral foot pain (Primary Dx); Cramps of lower extremityfrom Last 3 Months Family History Medical HistoryRelationNameCommentsCancer- OtherFatherbrain, stomachLung Cancer FatherBreast CancerMotherCancer- OtherMotherthroatRelationNameStatusComments FatherDeceasedMotherDeceased Social History Tobacco UseTypesPacks/DayYears UsedDateSmoking Tobacco: NeverSmokeless Tobacco: Never Tobacco Cessation:Counseling Given: Not Answered Alcohol UseStandard Drinks/WeekCommentsNever0 (1 standard drink = 0.6 oz pure alcohol)CommentsNoSex and Gender InformationValueDate RecordedSex Assigned at BirthNot on fileLegal MwiNytmhf48/04/2022 9:40 PM ESTGender Identity Not on fileSexual OrientationNot on file Last Filed Vital Signs Vital SignReadingTime TakenCommentsBlood Ghfelsed647/4583111/08/2024 2:23 AM EST Zijtw324011/08/2024 2:23 AM KFHZjojpgqxkln86.4 ??C (97.6 ??F)08/12/2025 3:00 PM ESTRespiratory Hxgp855211/08/2024 2:23 AM ESTOxygen Knravjburc69%11/08/2024 2:23 AM ESTInhaled Oxygen Concentration--Tvgchu833.6 kg (279 lb 1.6 oz)08/12/2025 3:00 PM DSRPhximr208.6 cm (5' 6 )08/12/2025 3:00 PM ESTBody Mass Index45.05 08/12/2025 3:00 PM EST Plan of Treatment Health MaintenanceDue DateLast DoneCommentsDEXA SCAN CSUHLBYIFX1957 HEPATITIS C VIRUS FZGURILHG07/14/1786XUECHAR1957TDAP (ADULT)1976 CERVICAL CANCER SCREENING LIOODNVWJD79/14/1978LIPID AFAFGTBNT71/14/1997MAMMOGRAM SCREENING IERSHLBCUG35/14/1997COLORECTAL CANCER SCREENING CKDINVWRRN22/14/2002 PNEUMOCOCCAL VACCINE SERIES (1 of 1 - PCV)2007RSV VACCINE (1 - Risk 50-74 years 1-dose series)2007ZOSTER (SHINGLES) VACCINE (1 of 2)2007COVID- 19 VACCINE (1 - season)2025INFLUENZA VACCINE (#1)2025TSH 6110/05/2024, 05/06/2025, 11/08/2024, Additional history existsHEP B VACCINEAged OutNo longer eligible based on patient's age to complete this topic Procedures Procedure NamePriorityDate/TimeAssociated DiagnosisCommentsT3 FREERoutine 08/05/2025 10:19 AM EST ZZNYgdvcyk43/25/2025 10:19 AM EST G9Yemaaku30/25/2025 10:19 AM EST ORDERS (SCAN)Wkcssci1407/24/2025 4:05 PM ESTORDERS (SCAN)Rtjcypf5907/24/2025 4:04 PM ESTfrom Last 3 Months Results * T3 FREE (08/05/2025 10:19 AM EST)ComponentValueRef RangeTest MethodAnalysis TimePerformed AtPathologist SignatureFREE [id number] - 5.27 pg/mLBUSUMMA HEALTH [facility] - [address] - [facility]pechigh[facility]n (Source)Anatomical Location / LateralityCollection Method / VolumeCollection TimeReceived Time08/05/2025 10:19 AM EST08/05/2025 10:26 AM EST Narrative Authorizing ProviderResult TypeResult StatusDobenja Quezada MDENDOCRINOLOGYFinal ResultPerforming OrganizationAddressCity/State/ZIP CodePhone Number [facility] - [address] - [place] [address] [place] [address] * TSH (08/05/2025 10:19 AM EST)ComponentValueRef RangeTest MethodAnalysis Time Performed AtPathologist [id number] - 4.680 uIU/ML[address]Specimen (Source)Anatomical Location / LateralityCollection Method / VolumeCollection TimeReceived Time08/05/2025 10:19 AM EST08/05/2025 10:20 AM EST Narrative Authorizing ProviderResult TypeResult StatusAsad Quezada MDENDOCRINOLOGYFinal ResultPerforming OrganizationAddressCity/State/ZIP CodePhone Number [address] [address] * T4 (08/05/2025 10:19 AM EST)ComponentValueRef RangeTest MethodAnalysis Time Performed AtPathologist MlujcwjmeO23.0[facility]ITALComment: Reference range: 4.5 to 12.0 Unit: ug/dL PERFORMED AT [facility] Specimen (Source)Anatomical Location / LateralityCollection Method / Volume Collection TimeReceived Time08/05/2025 10:19 AM EST08/05/2025 10:20 AM EST Narrative Authorizing ProviderResult TypeResult StatusAsad NGUYENOCRINOLOGYFinal ResultPerforming OrganizationAddressCity/State/ZIP CodePhone Number [facility] [address] [place] [phone] * ORDERS (SCANNED) (07/24/2025 4:05 PM EST)Anatomical RegionLateralityModality Other Narrative Authorizing ProviderResult TypeResult StatusAsad Quezada MDPROC - OPERATIVE Final Result * ORDERS (SCANNED) (07/24/2025 4:04 PM EST)Anatomical RegionLateralityModality Other Narrative Authorizing ProviderResult TypeResult StatusAsad Quezada MDPROC - OPERATIVE Final Result from Last 3 Months Insurance Care Teams Team MemberRelationshipSpecialtyStart DateEnd Asad Quezada MD PCP - Generalmily Medicine10/15/21
[2025-09-03 12:52] LABS: Hematocrit 41.9 % (36.0-48.0); Hemoglobin 14.1 g/dL (12.0-16.0); Immature Granulocytes Abs Auto 0.06 10^3/uL (0.00-0.03); Immature Granulocytes Pct Auto 1.0 % (0.0-0.5); Lymphocytes Absolute Auto 1.7 10^3/uL (1.2-3.8); Mean Corpuscular HGB Conc 33.7 g/dL (29.9-35.2); Mean Corpuscular Hemoglobin 31.5 pg (26.7-34.0); Mean Corpuscular Volume 93.5 fL (81.0-99.0); Platelet Count 257 10^3/uL (150-450); Red Blood Count 4.48 10^6/uL (4.20-5.40); White Blood Count 6.3 10^3/uL (4.0-11.0)
[2025-09-03 13:52] LABS: Alanine Aminotransferase 26 U/L (14-59); Albumin Globulin Ratio 0.9; Albumin Level 3.4 g/dL (3.4-5.0); Alkaline Phosphatase 90 U/L (46-116); Anion Gap 9.1; Aspartate Amino Transferase 21 U/L (15-37); Blood Urea Nitrogen 11.0 mg/dL (7.0-18.0); Calcium 9.3 mg/dL (8.5-10.1); Carbon Dioxide 32.0 mmol/L (21.0-32.0); Chloride 104 mmol/L (98-107); Estimated GFR (African America >60 (>=60 mL/min/1.73m^2); Estimated GFR (Non-African Ame >60 (>=60 mL/min/1.73m^2); Free T3 2.80 pg/mL (2.18-3.98); Globulin 3.8 g/dL; Glucose 90 mg/dL (74-106); Magnesium 2.0 mg/dL (1.8-2.4); Potassium 4.1 mmol/L (3.5-5.1); Sodium 141 mmol/L (136-145); Thyroid Stimulating Hormone 2.385 uIU/mL (0.358-3.740); Total Protein 7.2 g/dL (6.4-8.2)
== END 2025-09-03 12:24 | disposition home or self-care (01) ==
LOC: LAB 12:27
PROVIDERS: PCP Family Medicine; Visit Provider Family Medicine
DX: E03.9 Hypothyroidism, unspecified (principal); E66.9 Obesity, unspecified
CPT/HCPCS: 36415; 80053; 83735; 84100; 84436; 84443; 84481; 85025